=== PATIENT | female | born 1940 | race Caucasian/White ===

== ENCOUNTER 2016-12-11 08:59 | Outpatient (CLI) | payer MEDICARE, OTHER | END 2016-12-11 09:00 | disposition home or self-care (01) | DX: Z12.31 Encounter for screening mammogram for malignant neoplasm of breast (principal) ==

== ENCOUNTER 2016-12-11 09:00 | Outpatient (CLI) | payer MEDICARE, OTHER | END 2016-12-11 09:01 | disposition home or self-care (01) | DX: Z13.820 Encounter for screening for osteoporosis (principal); Z78.0 Asymptomatic menopausal state ==

== ENCOUNTER 2017-04-23 16:09 | Outpatient (CLI) | payer MEDICARE, OTHER ==
[2017-04-23 13:57] LABS: HEMOGLOBIN A1C 0.8 g/dL
== END 2017-04-23 16:10 | disposition home or self-care (01) ==
LOC: LAB.N 16:09
PROVIDERS: ATTEND Physician Assistant Medical
DX: E11.9 Type 2 diabetes mellitus without complications (principal)
CPT/HCPCS: 36415; 82947; 83036

== ENCOUNTER 2017-05-07 09:56 | Outpatient (CLI) | payer MEDICARE, OTHER ==
--- NOTE | 2017-05-07 13:41 | CT Report ---
CT NECK WITHOUT CONTRAST: 05/07/2017 CLINICAL INDICATION: Left-sided enlargement, edema. TECHNIQUE: Axial CT images of the neck were obtained without intravenous contrast, due to patient's IODINE ALLERGY. A marker was placed at the site of swelling identified by the patient. No previous CT is available for comparison. FINDINGS: The visualized orbits and paranasal sinuses are unremarkable. The tracheal air column is widely patent throughout. There is fatty replacement of both parotid glands. The marker does correl ate with the left parotid gland. No intraparotid mass is identified. The submandibular glands appea r unremarkable. No cervical lymphadenopathy is appreciated. The thyroid is heterogeneous. Limited evaluation of the lung apices is unremarkable. Osseous structures demonstrate degenerative changes. IMPRESSION: NO EVIDENCE OF INTRAPAROTID MASS OR OTHER EXPLANATION FOR SWELLING. FATTY REPLACEMENT O F BOTH PAROTID GLANDS, SYMMETRIC. NO CERVICAL ADENOPATHY. In accordance with CT protocol optimization, one or more of the following dose reduction techniques w ere utilized for this exam: automated exposure control, adjustment of mA and/or KV based on patient size, or use of iterative reconstructive technique. JOB #: [id number] EXT JOB #:[id number]
== END 2017-05-07 09:57 | disposition home or self-care (01) ==
LOC: DI 09:56
PROVIDERS: ATTEND Physician Assistant Medical
DX: R22.1 Localized swelling, mass and lump, neck (principal)
CPT/HCPCS: 70490

== ENCOUNTER 2017-08-23 14:30 | Outpatient (CLI) | payer MEDICARE, OTHER ==
[2017-08-23 14:08] LABS: HEMOGLOBIN A1C 0.87 g/dL
== END 2017-08-23 14:31 | disposition home or self-care (01) ==
LOC: LAB.N 14:30
PROVIDERS: ATTEND Physician Assistant Medical
DX: E11.9 Type 2 diabetes mellitus without complications (principal); Z79.899 Other long term (current) drug therapy
CPT/HCPCS: 36415; 82947; 83036

== ENCOUNTER 2017-11-27 10:09 | Outpatient (CLI) | payer MEDICARE, OTHER | END 2017-11-27 10:10 | disposition home or self-care (01) | LOC: SC 10:09 | PROVIDERS: ATTEND Nurse Practitioner Family | DX: G47.33 Obstructive sleep apnea (adult) (pediatric) (principal) | CPT/HCPCS: 99214; G0463; 99212 ==

== ENCOUNTER 2017-12-16 09:37 | Outpatient (CLI) | payer MEDICARE, OTHER ==
[2017-12-16 12:58] LABS: BASOPHILS % (AUTO) 0.6 %; EOSINOPHILS # (AUTO) 0.2 10^3/uL (0.0-0.7); EOSINOPHILS % (AUTO) 2.5 %; HGB - HEMOGLOBIN 13.9 g/dL (12.0-16.0); LYMPHOCYTES # (AUTO) 2.1 10^3/uL (1.5-3.5); LYMPHOCYTES % (AUTO) 30.3 %; MEAN CORPUSCULAR HEMOGLOBIN 30.3 pg (27.0-31.0); MEAN CORPUSCULAR HGB CONC 33.2 g/dL (32.0-36.0); MEAN CORPUSCULAR VOLUME 91.3 fL (81.0-99.0); MEAN PLATELET VOLUME 8.9 fL (7.9-10.8); MONOCYTES # (AUTO) 0.6 10^3/uL (0.0-1.0); MONOCYTES % (AUTO) 8.3 %; NEUTROPHILS # (AUTO) 4.1 10^3/uL (1.5-6.6); NEUTROPHILS % (AUTO) 58.3 %; PLT - PLATELET COUNT 230 10^3/uL (130-450); RED BLOOD COUNT 4.58 10^6/uL (4.20-5.40); RED CELL DISTRIBUTION WIDTH 16.1 % (12.0-15.0); WHITE BLOOD COUNT 7.1 x10^3/uL (4.8-10.8)
[2017-12-16 13:15] LABS: ALBUMIN 3.7 g/dL (3.2-5.5); ALBUMIN/GLOBULIN RATIO 1.2 (1.0-2.2); ALKALINE PHOSPHATASE 45 IU/L (42-121); ALT ALANINE AMINOTRANSFERASE 25 IU/L (10-60); AST ASPARTATE AMINOTRANSFERASE 26 IU/L (10-42); BILIRUBIN,TOTAL 0.5 mg/dL (0.2-1.0); BUN - BLOOD UREA NITROGEN 21 mg/dL (6-20); CALCIUM 9.1 mg/dL (8.5-10.3); CARBON DIOXIDE - CO2 26 mmol/L (21-32); CHLORIDE 103 mmol/L (101-111); CHOL/HDL RATIO 3.5 (<4.4); CHOLESTEROL 162 mg/dL; CREATININE 0.8 mg/dL (0.4-1.0); GFR - MDRD 69 (>89); GLUCOSE 185 mg/dL (70-100); HDL CHOLESTEROL 46 mg/dL; LDL CHOLESTEROL,CALCULATED 83 mg/dL; LDL/HDL RATIO 1.8 (<4.4); SODIUM 136 mmol/L (135-145); TOTAL PROTEIN 6.7 g/dL (6.7-8.2); VLDL CHOLESTEROL 33 mg/dL
[2017-12-16 13:29] LABS: HB2 TOTAL 14.8 g/dL; HEMOGLOBIN A1C 0.85 g/dL; HEMOGLOBIN A1C % 7.4 % (4.6-6.2)
== END 2017-12-16 09:38 | disposition home or self-care (01) ==
LOC: LAB.N 09:37
PROVIDERS: ATTEND Nurse Practitioner Primary Care
DX: E11.9 Type 2 diabetes mellitus without complications (principal); Z79.899 Other long term (current) drug therapy; M06.9 Rheumatoid arthritis, unspecified; I10 Essential (primary) hypertension; J32.9 Chronic sinusitis, unspecified; E78.2 Mixed hyperlipidemia
CPT/HCPCS: 36415; 80053; 80061; 83036; 83721; 85025

== ENCOUNTER 2018-01-03 08:00 | Outpatient (CLI) | payer MEDICARE, OTHER ==
[2018-01-07 17:01] LABS: CREATININE, URINE 1.25 g/24 h (0.63-2.50)
== END 2018-01-03 23:59 | disposition home or self-care (01) ==
LOC: LAB.R 08:00
PROVIDERS: ATTEND Physician Assistant Medical
DX: R53.83 Other fatigue (principal); F32.9 Major depressive disorder, single episode, unspecified; E66.9 Obesity, unspecified; I10 Essential (primary) hypertension; E11.9 Type 2 diabetes mellitus without complications
CPT/HCPCS: 82530; 82570

== ENCOUNTER 2018-01-04 08:46 | Outpatient (CLI) | payer MEDICARE, OTHER | END 2018-01-04 08:47 | disposition home or self-care (01) | LOC: LAB 08:46 | PROVIDERS: ATTEND Physician Assistant Medical | DX: R53.83 Other fatigue (principal); F32.9 Major depressive disorder, single episode, unspecified; E66.9 Obesity, unspecified; I10 Essential (primary) hypertension; E11.9 Type 2 diabetes mellitus without complications | CPT/HCPCS: 36415; 82533 ==

== ENCOUNTER 2018-05-09 08:53 | Outpatient (CLI) | payer MEDICARE, OTHER ==
[2018-05-09 13:40] LABS: HB2 TOTAL 15.9 g/dL; HEMOGLOBIN A1C 0.87 g/dL; HEMOGLOBIN A1C % 7.2 % (4.6-6.2)
== END 2018-05-09 08:54 | disposition home or self-care (01) ==
LOC: LAB.N 08:53
PROVIDERS: ATTEND Physician Assistant Medical
DX: E11.9 Type 2 diabetes mellitus without complications (principal); Z79.899 Other long term (current) drug therapy
CPT/HCPCS: 36415; 82947; 83036

== ENCOUNTER 2018-07-31 08:00 | Outpatient (CLI) | payer MEDICARE, OTHER ==
[2018-07-31 12:21] LABS: HB2 TOTAL 15.1 g/dL; HEMOGLOBIN A1C 0.88 g/dL; HEMOGLOBIN A1C % 7.5 % (4.6-6.2)
== END 2018-07-31 08:01 | disposition home or self-care (01) ==
LOC: LAB.N 08:00
PROVIDERS: ATTEND Physician Assistant Medical
DX: Z79.899 Other long term (current) drug therapy (principal); E11.9 Type 2 diabetes mellitus without complications
CPT/HCPCS: 36415; 82947; 83036

== ENCOUNTER 2018-08-11 09:40 | Outpatient (CLI) | payer MEDICARE, OTHER | END 2018-08-11 09:41 | disposition home or self-care (01) | LOC: LAB.R 09:40 | PROVIDERS: ATTEND Physician Assistant Medical | DX: N39.0 Urinary tract infection, site not specified (principal) | CPT/HCPCS: 87086 ==

== ENCOUNTER 2018-10-07 10:03 | Outpatient (CLI) | payer MEDICARE, OTHER ==
--- NOTE | 2018-10-07 11:15 | XRAY Report ---
Reason: KNEE PAIN,RIGHT Procedure Date: 10/07/2018 Accession Number: [id number] / [id number] Procedure: XR - Knee 4 View RT CPT Code: FULL RESULT: EXAM: RIGHT KNEE RADIOGRAPHY EXAM DATE: 10/07/2018 10:09 AM. CLINICAL HISTORY: Knee pain, right. COMPARISON: XR KNEE 3 VIEW 03/15/2009 11:21 AM. TECHNIQUE: 3 views. FINDINGS: Bones: Normal. No fractures or bone lesions. Joints: Normal. Small suprapatellar effusion. No subluxations. Soft Tissues: Normal. No soft tissue swelling. IMPRESSION: Small suprapatellar effusion, otherwise normal knee radiography. RAD[facility]
== END 2018-10-07 10:04 | disposition home or self-care (01) ==
LOC: DI 10:03
PROVIDERS: ATTEND Physician Assistant Medical
DX: M25.461 Effusion, right knee (principal); M25.561 Pain in right knee

== ENCOUNTER 2018-11-03 16:18 | Outpatient (CLI) | payer MEDICARE, OTHER ==
[2018-11-05 10:49] LABS: CLARITY,URINE CLEAR (CLEAR); LEUKOCYTE ESTERASE, URINE NEGATIVE (NEGATIVE); NITRITE,URINE NEGATIVE (NEGATIVE)
[2018-11-05 10:50] LABS: BILIRUBIN,URINE NEGATIVE (NEGATIVE); GLUCOSE, URINE (UA) NEGATIVE (NEGATIVE); ICTOTEST,URINE NEGATIVE; KETONES,URINE (UA) NEGATIVE (NEGATIVE); OCCULT BLOOD,URINE NEGATIVE (NEGATIVE); PH,URINE 7.5 PH (5.0-7.5); PROTEIN,URINE NEGATIVE (NEGATIVE); UROBILINOGEN,URINE 0.2 (NORMAL) E.U./dL (NORMAL)
== END 2018-11-03 23:59 | disposition home or self-care (01) ==
LOC: LAB.R 16:18
PROVIDERS: ATTEND Nurse Practitioner Primary Care
DX: R82.90 Unspecified abnormal findings in urine (principal); R10.9 Unspecified abdominal pain
CPT/HCPCS: 81001; 81003; 87086

== ENCOUNTER 2018-11-24 08:00 | Outpatient (CLI) | payer MEDICARE, OTHER ==
[2018-11-24 13:43] LABS: BASOPHILS % (AUTO) 0.6 %; EOSINOPHILS # (AUTO) 0.2 10^3/uL (0.0-0.7); EOSINOPHILS % (AUTO) 3.1 %; LYMPHOCYTES # (AUTO) 2.1 10^3/uL (1.5-3.5); LYMPHOCYTES % (AUTO) 27.5 %; MEAN CORPUSCULAR HEMOGLOBIN 30.9 pg (27.0-31.0); MEAN CORPUSCULAR HGB CONC 33.1 g/dL (32.0-36.0); MEAN CORPUSCULAR VOLUME 93.4 fL (81.0-99.0); MEAN PLATELET VOLUME 8.7 fL (7.9-10.8); MONOCYTES # (AUTO) 0.5 10^3/uL (0.0-1.0); MONOCYTES % (AUTO) 6.8 %; NEUTROPHILS # (AUTO) 4.8 10^3/uL (1.5-6.6); PLT - PLATELET COUNT 316 10^3/uL (130-450); RED BLOOD COUNT 4.54 10^6/uL (4.20-5.40); RED CELL DISTRIBUTION WIDTH 15.1 % (12.0-15.0); WHITE BLOOD COUNT 7.8 x10^3/uL (4.8-10.8)
[2018-11-24 13:49] LABS: ALBUMIN 3.6 g/dL (3.2-5.5); ALKALINE PHOSPHATASE 59 IU/L (42-121); ALT ALANINE AMINOTRANSFERASE 22 IU/L (10-60); AST ASPARTATE AMINOTRANSFERASE 22 IU/L (10-42); BILIRUBIN,TOTAL 0.5 mg/dL (0.2-1.0); BUN - BLOOD UREA NITROGEN 18 mg/dL (6-20); CALCIUM 9.7 mg/dL (8.5-10.3); CARBON DIOXIDE - CO2 28 mmol/L (21-32); CHLORIDE 100 mmol/L (101-111); CHOLESTEROL 169 mg/dL; CREATININE 0.8 mg/dL (0.4-1.0); GFR - MDRD 69 (>89); GLUCOSE 109 mg/dL (70-100); HDL CHOLESTEROL 46 mg/dL; LDL CHOLESTEROL,CALCULATED 87 mg/dL; SODIUM 140 mmol/L (135-145); TOTAL PROTEIN 7.1 g/dL (6.7-8.2); VLDL CHOLESTEROL 36 mg/dL
[2018-11-24 13:50] LABS: CHOL/HDL RATIO 3.7 (<4.4); LDL/HDL RATIO 1.9 (<4.4)
[2018-11-24 13:56] LABS: HB2 TOTAL 15.1 g/dL; HEMOGLOBIN A1C 0.74 g/dL; HEMOGLOBIN A1C % 6.6 % (4.6-6.2)
== END 2018-11-24 23:59 | disposition home or self-care (01) ==
LOC: LAB.N 08:00
PROVIDERS: ATTEND Physician Assistant Medical
DX: Z79.899 Other long term (current) drug therapy (principal); E55.9 Vitamin D deficiency, unspecified; E66.3 Overweight; E78.2 Mixed hyperlipidemia; I10 Essential (primary) hypertension; F32.9 Major depressive disorder, single episode, unspecified; E11.9 Type 2 diabetes mellitus without complications
CPT/HCPCS: 36415; 80053; 80061; 82306; 83036; 83721; 84443; 85025

== ENCOUNTER 2018-12-17 08:40 | Outpatient (CLI) | payer MEDICARE, OTHER | END 2018-12-17 08:41 | disposition home or self-care (01) | LOC: SC 08:40 | PROVIDERS: ATTEND Nurse Practitioner Family | DX: G47.33 Obstructive sleep apnea (adult) (pediatric) (principal) | CPT/HCPCS: 99214; G0463; 99212 ==

== ENCOUNTER 2019-03-09 08:00 | Outpatient (CLI) | payer MEDICARE, OTHER ==
[2019-03-09 13:05] LABS: CALCIUM 9.6 mg/dL (8.5-10.3); CREATININE 0.7 mg/dL (0.4-1.0)
[2019-03-09 13:20] LABS: HB2 TOTAL 15.5 g/dL; HEMOGLOBIN A1C 0.76 g/dL; HEMOGLOBIN A1C % 6.6 % (4.6-6.2)
== END 2019-03-09 23:59 | disposition home or self-care (01) ==
LOC: LAB.N 08:00
PROVIDERS: ATTEND Family Medicine
DX: E11.9 Type 2 diabetes mellitus without complications (principal)
CPT/HCPCS: 36415; 80048; 83036

== ENCOUNTER 2019-05-14 16:48 | Outpatient (CLI) | payer MEDICARE, OTHER ==
--- NOTE | 2019-05-15 09:08 | XRAY Report ---
Reason: KNEE JOINT PAIN,LEFT,KNEE PAIN,RIGHT Procedure Date: 05/14/2019 Accession Number: [id number] / [id number] Procedure: XR - Knee 3 View BILAT CPT Code: FULL RESULT: EXAMS: 1. Right Knee Radiography 2. Left Knee Radiography EXAM DATE:05/14/2019 05:18 PM. CLINICAL HISTORY:Chronic bilateral knee pain x 2 years. No left knee comparison. COMPARISON: KNEE 4 VIEW RT 10/07/2018 10:09 AM. TECHNIQUE: 4 views each. FINDINGS: Right Knee: Bones: Normal. No fractures or bone lesions. Joints: Normal. No effusion. No subluxations. Soft Tissues: Very small nodular calcification projecting over Hoffa's fat pad is without significant change. Loose body not excluded. Vascular calcifications. Left Knee: Bones: Normal. No fractures or bone lesions. Joints: Normal. No effusion. No subluxations. Soft Tissues: Possible posterior calcified loose body. IMPRESSION: 1. No definite osseous abnormality of the knees. 2. Possible calcified loose bodies. RADIA
== END 2019-05-14 16:49 | disposition home or self-care (01) ==
LOC: DI 16:48
PROVIDERS: ATTEND Nurse Practitioner
DX: M25.562 Pain in left knee (principal); M25.561 Pain in right knee

== ENCOUNTER 2019-05-25 08:15 | Outpatient (CLI) | payer MEDICARE, OTHER ==
[2019-05-25 12:02] LABS: CALCIUM 9.7 mg/dL (8.5-10.3); CREATININE 0.8 mg/dL (0.4-1.0)
[2019-05-25 12:35] LABS: HB2 TOTAL 15.3 g/dL; HEMOGLOBIN A1C 0.94 g/dL; HEMOGLOBIN A1C % 7.8 % (4.6-6.2)
== END 2019-05-25 23:59 | disposition home or self-care (01) ==
LOC: LAB.N 08:15
PROVIDERS: ATTEND Nurse Practitioner
DX: E11.9 Type 2 diabetes mellitus without complications (principal)
CPT/HCPCS: 36415; 80048; 83036

== ENCOUNTER 2019-10-05 07:46 | Outpatient (CLI) | payer MEDICARE, OTHER ==
[2019-10-05 12:32] LABS: CALCIUM 9.6 mg/dL (8.5-10.3); CREATININE 0.7 mg/dL (0.4-1.0)
[2019-10-05 13:22] LABS: HB2 TOTAL 14.8 g/dL; HEMOGLOBIN A1C 0.86 g/dL; HEMOGLOBIN A1C % 7.5 % (4.6-6.2)
== END 2019-10-05 23:59 | disposition home or self-care (01) ==
LOC: LAB.N 07:46
PROVIDERS: ATTEND Nurse Practitioner
DX: E11.9 Type 2 diabetes mellitus without complications (principal)
CPT/HCPCS: 36415; 80048; 83036

== ENCOUNTER 2019-12-02 08:00 | Outpatient (CLI) | payer MEDICARE, OTHER ==
[2019-12-02 11:57] LABS: BASOPHILS # (AUTO) 0.1 10^3/uL (0.0-0.1); BASOPHILS % (AUTO) 0.5 %; EOSINOPHILS # (AUTO) 0.3 10^3/uL (0.0-0.7); EOSINOPHILS % (AUTO) 2.8 %; HGB - HEMOGLOBIN 13.6 g/dL (12.0-16.0); LYMPHOCYTES # (AUTO) 2.7 10^3/uL (1.5-3.5); LYMPHOCYTES % (AUTO) 28.7 %; MEAN CORPUSCULAR HEMOGLOBIN 29.8 pg (27.0-31.0); MEAN CORPUSCULAR HGB CONC 31.3 g/dL (32.0-36.0); MEAN CORPUSCULAR VOLUME 95.2 fL (81.0-99.0); MEAN PLATELET VOLUME 10.4 fL (7.9-10.8); MONOCYTES # (AUTO) 0.6 10^3/uL (0.0-1.0); MONOCYTES % (AUTO) 6.1 %; NEUTROPHILS # (AUTO) 5.7 10^3/uL (1.5-6.6); NEUTROPHILS % (AUTO) 61.6 %; PLT - PLATELET COUNT 376 10^3/uL (130-450); RED BLOOD COUNT 4.57 10^6/uL (4.20-5.40); RED CELL DISTRIBUTION WIDTH 15.8 % (12.0-15.0); WHITE BLOOD COUNT 9.2 x10^3/uL (4.8-10.8)
[2019-12-02 12:30] LABS: ALBUMIN 3.6 g/dL (3.2-5.5); ALBUMIN/GLOBULIN RATIO 1.1 (1.0-2.2); ALKALINE PHOSPHATASE 53 IU/L (42-121); ALT ALANINE AMINOTRANSFERASE 30 IU/L (10-60); AST ASPARTATE AMINOTRANSFERASE 29 IU/L (10-42); BILIRUBIN,TOTAL 0.6 mg/dL (0.2-1.0); BUN - BLOOD UREA NITROGEN 24 mg/dL (6-20); CALCIUM 9.8 mg/dL (8.5-10.3); CARBON DIOXIDE - CO2 29 mmol/L (21-32); CHLORIDE 101 mmol/L (101-111); CHOL/HDL RATIO 3.2 (<4.4); CHOLESTEROL 164 mg/dL; CREATININE 0.8 mg/dL (0.4-1.0); GFR - MDRD 69 (>89); GLUCOSE 144 mg/dL (70-100); HDL CHOLESTEROL 51 mg/dL; LDL CHOLESTEROL,CALCULATED 80 mg/dL; LDL/HDL RATIO 1.6 (<4.4); SODIUM 140 mmol/L (135-145); TOTAL PROTEIN 6.8 g/dL (6.7-8.2); VLDL CHOLESTEROL 33 mg/dL
[2019-12-04 10:20] LABS: HB2 TOTAL 13.5 g/dL; HEMOGLOBIN A1C 0.81 g/dL; HEMOGLOBIN A1C % 7.6 % (4.6-6.2)
== END 2019-12-02 23:59 | disposition home or self-care (01) ==
LOC: LAB.N 08:00
PROVIDERS: ATTEND Nurse Practitioner
DX: Z79.899 Other long term (current) drug therapy (principal); E78.2 Mixed hyperlipidemia; I10 Essential (primary) hypertension; E11.9 Type 2 diabetes mellitus without complications
CPT/HCPCS: 36415; 80053; 80061; 83036; 83721; 84443; 85025

== ENCOUNTER 2020-05-03 14:00 | Observation (INO) | payer MEDICARE, OTHER ==
--- NOTE | 2020-05-03 14:58 | XRAY Report ---
Reason: chest pain Procedure Date: 05/03/2020 Accession Number: [id number] / [id number] Procedure: XR - Chest 1 View X-Ray CPT Code: 34470 Final Report FULL RESULT: PROCEDURE: Chest 1 View X-Ray INDICATIONS: chest pain TECHNIQUE: One view of the chest was acquired. COMPARISON: None FINDINGS: Surgical changes and devices: None. Lungs and pleura: No pleural effusions or pneumothorax. Lungs are clear. Mediastinum: Mediastinal contours appear normal. Heart size is normal. Bones and chest wall: No suspicious bony lesions. Overlying soft tissues appear unremarkable. IMPRESSION: No acute cardiopulmonary disease process. Reviewed by: Gladis Hernández MD, PhD on 05/03/2020 2:57 PM PDT Approved by: Gladis Hernández MD, PhD on 05/03/2020 2:57 PM PDT Station ID: [id number]
--- NOTE | 2020-05-03 15:03 | ED Physician Documentation ---
History of Present Illness - Stated complaint Stated Complaint: BREWSTER/SORE THROAT - Chief complaint Chief Complaint: General - History obtained from History obtained from: Patient - History of Present Illness Timing: Prior to arrival, How many hours ago (14) - Additonal information Additional information: 79-year-old female presents to the emergency department at the behest of her for evaluation of chest pain and pressure. Patient reports that at about 2 AM she woke up to use the bathroom and when she was returning to bed she noted a very mild left-sided substernal chest pressure. She took some Tylenol and then played solitaire and was able to return to sleep. However today she has noticed an occasional episode of chest pressure that has self resolved. She denies any dyspnea any calf or leg pain no nausea no jaw or arm tingling. She does have a history of hypertension and diabetes. She last had cardiac a stress test and echo in 2014. She denies fevers dysuria abdominal pain. No calf pain or unilateral leg swelling or tenderness. No leg edema. At present patient reports that she feels well and would like to be discharged from the emergency department. Review of Systems Constitutional: denies: Fever, Chills, Myalgias Ears: denies: Ear pain, Drainage/discharge, Tinnitus/ringing Throat: denies: Dental pain / toothache, Oral lesions / sores Cardiac: reports: Chest pain / pressure. denies: Palpitations, Pedal edema, Calf pain Respiratory: denies: Dyspnea, Cough, Hemoptysis, Wheezing GI: denies: Abdominal Pain, Abdominal Swelling, Nausea, Vomiting : denies: Dysuria, Frequency Skin: denies: Rash, Lesions Musculoskeletal: denies: Neck pain, Back pain Neurologic: denies: Generalized weakness, Focal weakness, Numbness, Difficulty speaking, Near syncope, Syncope, Altered mental status, Unresponsive PD PAST MEDICAL HISTORY - Past Medical History Past Medical History: Yes Cardiovascular: Hypertension, High cholesterol Respiratory: Asthma, Sleep apnea, CPAP use Neuro: Peripheral neuropathy Endocrine/Autoimmune: Type 2 diabetes GI: Colon polyps ENVIRONMENTAL SAMPLER: None : Frequency HEENT: None Psych: Depression Musculoskeletal: Rheumatoid arthritis Derm: None - Past Surgical History Past Surgical History: Yes General: Colonoscopy /ENVIRONMENTAL SAMPLER: Tubal ligation, Hysterectomy HEENT: Tonsil/Adenoidectomy - Present Medications Home Medications: Ambulatory Orders Medication Instructions Recorded Confirmed Cetirizine HCl [Zyrtec] 10 mg PO DAILY 12/08/13 05/03/20 Fluticasone [Flonase] 2 sprays DAMION DAILY 12/08/13 05/03/20 Folic Acid 1 mg PO DAILY 12/08/13 05/03/20 Hydrochlorothiazide 12.5 mg PO DAILY 12/08/13 05/03/20 Insulin Aspart [Novolog] 5 unit .ROUTE QID 12/08/13 05/03/20 Insulin Glargine [Lantus] 44 unit SUBQ QPM 12/08/13 05/03/20 lisinopriL [Zestril] 20 mg PO DAILY 12/08/13 05/03/20 metFORMIN [Glucophage] 125 mg PO BID 12/08/13 05/03/20 Aspirin [Aspir 81] 81 mg PO DAILY 01/19/14 05/03/20 Azelastine HCl [Astelin] 137 mcg NS DAILY 01/19/14 05/03/20 Docusate Calcium [Surfak] 240 mg PO TID PRN 01/19/14 05/03/20 Tolterodine Tartrate [Detrol] 1 mg PO ONCEDAILY 01/19/14 05/03/20 Ascorbic Acid [Vitamin C] 1 tab PO DAILY 12/14/15 05/03/20 Biotin 1 tab PO DAILY 12/14/15 05/03/20 Calcium Carbonate/Vitamin D3 1 tab PO DAILY 12/14/15 05/03/20 [Calcium 500 + Vit D Caplet] L.acidoph/L.rhamn/B.bif/B.long 1 tab PO DAILY 12/14/15 05/03/20 [Probiotic Acidophilus Biobeads] Parsley/Garlic [Garlic & Parsley 1 tab PO DAILY 12/14/15 05/03/20 Tablet] Glipizide [Glipizide Xl] 1.25 mg PO BID 05/03/20 05/03/20 Montelukast [Singulair] 10 mg PO QPM 05/03/20 05/03/20 Trazodone HCl 50 mg PO DAILY PM 05/03/20 05/03/20 buPROPion [Wellbutrin Sr] 150 mg PO DAILY PM 05/03/20 05/03/20 - Allergies Allergies/Adverse Reactions: Allergies Allergy/AdvReac Type Severity Reaction Status Date / Time iodine Allergy Intermediate Rash Verified 01/19/14 08:44 nifedipine [From Procardia] Allergy Mild supraventricular Verified 01/19/14 08:43 tachycardia codeine AdvReac Intermediate Anxiety Verified 12/08/13 09:03 - Social History Does the pt smoke?: No Smoking Status: Former smoker Does the pt drink ETOH?: No Does the pt have substance abuse?: No - Immunizations Immunizations are current?: No Immunizations: TDAP >10years/unknown - POLST Patient has POLST: No PD ED PE NORMAL - General General: Alert and oriented X 3, No acute distress, Well developed/nourished - HEENT HEENT: Atraumatic, PERRL, EOMI - Neck Neck: Supple, no meningeal sign, No adenopathy - Cardiac Cardiac: RRR, No murmur, No gallop, No rub, Strong equal pulses (radial) - Respiratory Respiratory: No respiratory distress, Clear bilaterally - Abdomen Abdomen: Normal bowel sounds, Non tender - Back Back: No: No CVA TTP, No spinal TTP - Derm Derm: Normal color, Warm and dry - Extremities Extremities: No deformity, No tenderness to palpate, No calf tenderness / cord - Neuro Neuro: Alert and oriented X 3, 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, No motor deficit, No sensory deficit, Normal speech Eye Opening: Spontaneous Motor: Obeys Commands Verbal: Oriented GCS Score: 15 - Psych Psych: Normal mood Results - Vitals Vitals: Vital Signs - 24 hr 05/03/20 05/03/20 14:06 16:00 Temperature 37.5 C Heart Rate 115 H 104 H Respiratory 16 18 Rate Blood Pressure 168/71 H 166/79 H O2 Saturation 96 97 Oxygen O2 Source Room air - EKG (time done) 1415 Rate: Rate (enter#) (107), Tachy Rhythm: Sinus tachycardia White Owl: Normal Intervals: Normal LA QRS: Normal Ischemia: Normal ST segments Compare to prior EKG: Changed from prior EKG (Sinus tach with multiple unifocal PVC;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; Changes QRS V4V5) Computer interpretation: Agree with computer - Labs Labs: Laboratory Tests 05/03/20 05/03/20 05/03/20 15:51 15:51 15:51 WBC 11.7 H RBC 5.03 Hgb 14.7 Hct 46.8 MCV 93.0 MCH 29.2 MCHC 31.4 L RDW 16.4 H Plt Count 307 MPV 10.1 Neut # (Auto) 8.1 H Lymph # (Auto) 2.6 Kingfisher # (Auto) 0.8 Eos # (Auto) 0.1 Baso # (Auto) 0.1 Absolute Nucleated RBC 0.00 Nucleated RBC % 0.0 Sodium 138 Potassium 3.6 Chloride 97 L Carbon Dioxide 30 Anion Gap 11.0 BUN 15 Creatinine 0.7 Estimated GFR (MDRD) 81 L Glucose 178 H Calcium 9.9 Total Bilirubin 0.3 AST 27 ALT 30 Alkaline Phosphatase 52 Troponin I High Sens 10.8 Total Protein 7.6 Albumin 3.7 Globulin 3.9 Albumin/Globulin Ratio 0.9 L Lipase 30 - Rads (name of study) cxr Radiology: Final report received (no acute cardiopulmonary process) PD MEDICAL DECISION MAKING - ED course Complexity details: reviewed results, re-evaluated patient, considered differential, d/w patient ED course: 79-year-old female presents to the emergency department with chief complaint of chest pressure that began last night about 2 AM. Episodes are brief lasting only a few minutes. No associated arm or jaw pain or tingling. - Differential diagnosis includes angina versus ACS versus pneumonia versus heart failure - EKG today is reviewed and is significantly different from the EKG in 2015. No ST elevation but there is concern of possible old inferior infarct. Patient high-sensitivity Trop today is 10.8 but given the history of diabetes and hypertension her symptoms are certainly consistent with anginal-like event. - I have spoken with Dr. Dey who is agreed to bring the patient in on an observation status for stress test and echocardiogram. Departure - Departure Disposition: ED Place in Observation Clinical Impression: Chest pressure Condition: Stable
[2020-05-03 16:01] LABS: BASOPHILS # (AUTO) 0.1 10^3/uL (0.0-0.1); BASOPHILS % (AUTO) 0.5 %; EOSINOPHILS # (AUTO) 0.1 10^3/uL (0.0-0.7); EOSINOPHILS % (AUTO) 1.1 %; HGB - HEMOGLOBIN 14.7 g/dL (12.0-16.0); LYMPHOCYTES # (AUTO) 2.6 10^3/uL (1.5-3.5); MEAN CORPUSCULAR HEMOGLOBIN 29.2 pg (27.0-31.0); MEAN CORPUSCULAR HGB CONC 31.4 g/dL (32.0-36.0); MEAN PLATELET VOLUME 10.1 fL (7.9-10.8); MONOCYTES # (AUTO) 0.8 10^3/uL (0.0-1.0); MONOCYTES % (AUTO) 6.5 %; NEUTROPHILS # (AUTO) 8.1 10^3/uL (1.5-6.6); NEUTROPHILS % (AUTO) 69.4 %; PLT - PLATELET COUNT 307 10^3/uL (130-450); RED BLOOD COUNT 5.03 10^6/uL (4.20-5.40); RED CELL DISTRIBUTION WIDTH 16.4 % (12.0-15.0); WHITE BLOOD COUNT 11.7 x10^3/uL (4.8-10.8)
[2020-05-03 16:13] LABS: ALBUMIN 3.7 g/dL (3.2-5.5); ALBUMIN/GLOBULIN RATIO 0.9 (1.0-2.2); BILIRUBIN,TOTAL 0.3 mg/dL (0.2-1.0); CALCIUM 9.9 mg/dL (8.5-10.3); CREATININE 0.7 mg/dL (0.4-1.0); TOTAL PROTEIN 7.6 g/dL (6.7-8.2)
[2020-05-03] MEDS ORDERED: ASPIRIN 325 MG TABLET PO STA (16:26)
[2020-05-03] MEDS ORDERED: ACETAMINOPHEN 325 MG TABLET PO PRN (16:57)
[2020-05-03] MEDS ORDERED: ONDANSETRON 4 MG/2 ML VIAL IVP PRN (16:57)
[2020-05-03] MEDS ORDERED: ZOLPIDEM 5 MG TABLET PO PRN (16:57)
[2020-05-03] MEDS ORDERED: MORPHINE 2 MG/ML CARPUJECT IVP PRN (16:57)
[2020-05-03] MEDS ORDERED: SODIUM CHLORIDE FLUSH 0.9% 10 ML SYRINGE IVP PRN (16:57)
[2020-05-03] MEDS ORDERED: NITROGLYCERIN SL 0.4 MG TABLET SL PRN (17:19)
--- NOTE | 2020-05-03 17:22 | HISTORY & PHYSICAL EXAMINATION ---
Chief Complaint - Chief Complaint Chief Complaint: chest pain History of Present Illness - Admitted From Admitted From:: ER - History Obtained From History obtained from: pt - History of Present Illness HPI Comment/Other: This is a 79-year-old female with a PMH significant for Hypertension, hyperlipidemia, asthma, sleep apnea, CPAP use, peripheral neuropathy, type II diabetic depression, rheumatioid arthritis, who presents to the emergency department complain of chest pain. Patient reports that at about 2 AM she woke up to use the bathroom she noted a very mild left-sided substernal chest pressure which radiated to her back. But She report She took Tylenol, she jennifer nue to have sleep when she was returning to bed. today she has noticed an occasional episode of chest pressure at the midsternal but it was self resolved. She denies shortness of breath, nausea or vomiting, jaw pain or arm pain or tingling, diaphoresis. She report her last cardiac stress test and echo was done in 2014. In routine lab test review troponin now is 10.8, EKG review sinus tachycardia at 107 HR. Pt Is admitted in the observation unit for chest pain management and evaluation. We discussed the care goal, patient want full code. History - Past Medical History Cardiovascular: reports: Hypertension, High cholesterol Respiratory: reports: Asthma, Sleep apnea, CPAP use Neuro: reports: Peripheral neuropathy Endocrine/Autoimmune: reports: Type 2 diabetes GI: reports: Colon polyps SPECIAL EDUCATION PARAPROFESSIONAL: reports: None : reports: Frequency HEENT: reports: None Psych: reports: Depression Musculoskeletal: reports: Rheumatoid arthritis Derm: reports: None MRSA Hx?: No - Past Surgical History General: reports: Colonoscopy /SPECIAL EDUCATION PARAPROFESSIONAL: reports: Tubal ligation, Hysterectomy HEENT: reports: Tonsil/Adenoidectomy - Family & Social History Family History: Mother: , Father: Social History Notes: pt repot she quitted cigarett smoking 36 yrs ago. she denies alcohol and drug issue. - POLST Patient has POLST: No Meds/Allgy - Home Medications Home Medications: Ambulatory Orders Medication Instructions Recorded Confirmed Fluticasone [Flonase] 2 sprays DAMION DAILY 12/08/13 05/03/20 Folic Acid 1 mg PO DAILY 12/08/13 05/03/20 Hydrochlorothiazide 12.5 mg PO DAILY 12/08/13 05/03/20 Insulin Aspart [Novolog] 12 - 20 unit SUBQ TID 12/08/13 01/04/16 Insulin Glargine [Lantus] 40 - 60 unit SUBQ QPM 12/08/13 01/04/16 Aspirin [Aspir 81] 81 mg PO DAILY 01/19/14 05/03/20 Azelastine HCl [Astelin] 2 sprays NS DAILY 01/19/14 01/04/16 Docusate Calcium [Surfak] 240 mg PO TID PRN 01/19/14 05/03/20 Lisinopril [Zestril] 20 mg PO DAILY 05/03/20 05/03/20 Metformin HCl 250 mg PO BID 05/03/20 05/03/20 Montelukast [Singulair] 10 mg PO QPM 05/03/20 05/03/20 Tolterodine Tartrate [Detrol LA] 4 mg PO DAILY 05/03/20 05/03/20 Trazodone HCl 50 mg PO DAILY PM 05/03/20 05/03/20 buPROPion [Wellbutrin Sr] 150 mg PO DAILY PM 05/03/20 05/03/20 glipiZIDE [Glipizide] 2.5 mg PO BID 05/03/20 05/03/20 - Allergies Allergies/Adverse Reactions: Allergies Allergy/AdvReac Type Severity Reaction Status Date / Time iodine Allergy Intermediate Rash Verified 01/19/14 08:44 nifedipine [From Procardia] Allergy Mild supraventricular Verified 01/19/14 08:43 tachycardia codeine AdvReac Intermediate Anxiety Verified 12/08/13 09:03 Review of Systems - Constitutional Constitutional: denies: Fatigue, Fever, Chills, Malaise, Weakness, Poor appetite, Diaphoresis, Night sweats - Eyes Eyes: denies: Pain, Blurred vision, Spots in vision, Field loss, Vision loss, Dipolpia - Ears, Nose & Throat Ears, Nose & Throat: denies: Ear pain, Hearing loss, Hearing aids, Vertigo, Nasal pain, Nasal discharge, Nosebleeds, Nasal obstruction, Nasal congestion, Mouth lesions, Bleeding gums - Cardiovascular Cariovascular: reports: Chest pain. denies: Irregular heart rate, Palpitations, Edema, Lightheadedness, Syncope, Exertional dyspnea, Decr. exercise tolerance - Respiratory Respiratory: denies: Cough, Sputum production, Wheezing, Snoring, Hemoptysis, Orthopnea, SOB at rest, SOB with exertion, Apnea - Gastrointestinal Gastrointestinal: denies: Abdominal pain, Abdominal distention, Constipation, Diarrhea, Rectal bleeding, Black stools, Bloody stools, Nausea, Vomiting, Coffee grounds emesis - Genitourinary Genitourinary: denies: Dysuria, Frequency, Urgency, Hematuria, Incontinence, Flank pain, Nocturia, Urethral discharge - Musculoskeletal Musculoskeletal: denies: Muscle pain, Back pain, Muscle aches, Stiffness, Limited range of motion, Muscle weakness, Gout, Joint pain - Integumentary Integumentary: denies: Rash, Pruritis, Lumps, Acne, Pigment changes, Nail changes - Neurological Neurological: denies: General weakness, Focal weakness, Headache, Dizziness, Numbness, Memory problems, Pre-existing deficit, Seizures, Incoordination, Slurred speech - Psychiatric Psychiatric: denies: Depression, Anxiety, Suicidal, Delusions, Hallucinations, Homicidal - Endocrine Endocrine: denies: Polyuria, Polydypsia, Polyphagia - Hematologic/Lymphatic Hematologic/Lymphatic: denies: Anemia, Bruising, Petechiae, Blood clots, Lymphadenopathy, Bleeding tendencies Exam - Vital Signs Vital Signs: Vital Signs x48h Temp Pulse Resp BP Pulse Ox 05/03/20 16:00 104 H 18 166/79 H 97 05/03/20 14:06 37.5 C 115 H 16 168/71 H 96 - Physical Exam General Appearance: positive: No acute distress, Alert. negative: Lethargic Eyes Bilateral: positive: Normal inspection, PERRL, No lid inflammation ENT: positive: ENT inspection nml, Pharynx nml, No signs of dehydration. negative: Purulent nasal drainage Neck: positive: Nml inspection, Thyroid nml, No JVD, Trachea midline. negative: Thyromegaly, Stiff neck, Tracheal deviation Respiratory: positive: Chest non-tender, No respiratory distress, Breath sounds nml. negative: Wheezes, Rales, Rhonchi Cardiovascular: positive: Regular rate & rhythm, No murmur, No gallop. negative: Irregularly irregular, Tachycardia, Bradycardia, Systolic murmur, Diastolic murmur Peripheral Pulses: positive: 2+ Abdomen: positive: Non-tender, No organomegaly, Nml bowel sounds, No distention. negative: Tenderness, Guarding, Rebound Back: positive: Nml inspection. negative: CVA tenderness (R), CVA tenderness (L) Skin: positive: Color nml, No rash, Warm, Dry. negative: Cyanosis, Diaphoresis, Pallor, Skin rash Extremities: positive: Non-tender, Full ROM, Nml appearance. negative: Calf tenderness, Edin's sign/cords Neurologic/Psychiatric: positive: Oriented x3, Motor nml, Sensation nml, Mood/affect nml. negative: Weakness, Sensory loss, Facial droop, Slurred/abnml speech, Depressed mood/affect Sepsis Event Note (H) - Evaluation Current Stage of Sepsis: Ruled out Conclusion/Plan - Problem List (1) Chest pain Conclusion/Plan: Patient report she have chest pain and chest pressure in this morning 2 AM, also had a few times of the chest pain. But she denies shortness of breathing, other radiated pain, nausea, vomiting, diaphoresis.Troponin now is 10.8 now, EKG show sinus tachycardia at 107 heart rate. Given patient has history of hypertension, hyperlipidemia, diabetic, We will have stress test on Saturday tomorrow morning with NPO in the middle night, echo, continue obstetrics gyn physician patient, continue check troponin, give aspirin 325 mg daily, nitro as needed for chest pain, morphine for chest pain as needed. Qualifiers: Chest pain type: unspecified Qualified Code(s): R07.9 - Chest pain, unspecified (2) HTN (hypertension) Conclusion/Plan: Patient has slightly elevated blood pressure, patient taking lisinopril in the home we will resume lisinopril, vital signs monitor patient (3) HLD (hyperlipidemia) Conclusion/Plan: Patient has a history of hyperlipidemia but the patient has no statin medication, we will check Lipid panel in the morning, we will follow-up (4) Diabetes Conclusion/Plan: Patient has a history of diabetic, we will give the patient Lantus insulin according to home insulin dosage, we will check A1c, and have sliding scale for pt (5) Asthma Conclusion/Plan: Patient has a history of asthma, we will resume home medication, we will add albuterol PRN as needed (6) Sleep apnea Conclusion/Plan: Patient has a history of sleep apnea, we will let the patient have her own CPAP - Lab Results Fish Bones: 05/03/20 15:51 05/03/20 15:51 Core Measures - Anticipated LOS I expect patient to be DC'd or transferred within 96 hours.: Yes - DVT/VTE - Prophylaxis VTE/DVT Device ordered at admit?: Yes VTE/DVT Prophylaxis med ordered at admit?: Yes
[2020-05-03] MEDS ORDERED: ALBUTEROL NEB 2.5 MG/3 ML INH PRN (17:45)
[2020-05-03 17:46] LABS: HB2 TOTAL 15.3 g/dL; HEMOGLOBIN A1C 0.95 g/dL; HEMOGLOBIN A1C % 7.8 % (4.6-6.2)
[2020-05-03] MEDS: PANTOPRAZOLE 40 MG TABLET PO SCH (18:43)
[2020-05-03] MEDS: SODIUM CHLORIDE FLUSH 0.9% 10 ML SYRINGE IVP SCH (18:45)
[2020-05-03] MEDS: lisinopriL 20 MG TABLET PO SCH (18:45)
[2020-05-03] MEDS: INSULIN ASPART 300 UNIT/3 ML PEN SUBQ SCH (20:55)
[2020-05-03] MEDS ORDERED: MONTELUKAST 10 MG TABLET PO SCH (21:00)
[2020-05-03] MEDS ORDERED: buPROPion SR 150 MG TABLET PO SCH (21:00)
[2020-05-03] MEDS ORDERED: INSULIN GLARGINE 300 UNIT/3 ML PEN SUBQ SCH (21:00)
[2020-05-03] MEDS ORDERED: traZODone 50 MG TABLET PO SCH (21:00)
[2020-05-04 05:15] LABS: BASOPHILS % (AUTO) 0.4 %; EOSINOPHILS # (AUTO) 0.2 10^3/uL (0.0-0.7); EOSINOPHILS % (AUTO) 2.5 %; HGB - HEMOGLOBIN 13.2 g/dL (12.0-16.0); LYMPHOCYTES # (AUTO) 3.1 10^3/uL (1.5-3.5); LYMPHOCYTES % (AUTO) 34.2 %; MEAN CORPUSCULAR HEMOGLOBIN 30.4 pg (27.0-31.0); MEAN CORPUSCULAR HGB CONC 32.3 g/dL (32.0-36.0); MEAN CORPUSCULAR VOLUME 94.2 fL (81.0-99.0); MEAN PLATELET VOLUME 10.2 fL (7.9-10.8); MONOCYTES # (AUTO) 0.8 10^3/uL (0.0-1.0); MONOCYTES % (AUTO) 9.3 %; NEUTROPHILS # (AUTO) 4.8 10^3/uL (1.5-6.6); NEUTROPHILS % (AUTO) 53.3 %; PLT - PLATELET COUNT 290 10^3/uL (130-450); RED BLOOD COUNT 4.34 10^6/uL (4.20-5.40); RED CELL DISTRIBUTION WIDTH 16.4 % (12.0-15.0)
[2020-05-04 05:24] LABS: CREATININE 0.8 mg/dL (0.4-1.0)
[2020-05-04 05:33] LABS: CHOL/HDL RATIO 2.9 (<4.4); CHOLESTEROL 140 mg/dL; HDL CHOLESTEROL 48 mg/dL; LDL CHOLESTEROL,CALCULATED 67 mg/dL; LDL/HDL RATIO 1.4 (<4.4); VLDL CHOLESTEROL 25 mg/dL
[2020-05-04] MEDS: SODIUM CHLORIDE FLUSH 0.9% 10 ML SYRINGE IVP SCH ×2 (07:02→09:19)
[2020-05-04] MEDS: PANTOPRAZOLE 40 MG TABLET PO SCH (07:02)
[2020-05-04] MEDS ORDERED: ASPIRIN 325 MG TABLET PO SCH (08:00)
[2020-05-04] MEDS ORDERED: ENOXAPARIN 40 MG/0.4 ML SYRINGE SUBQ SCH (09:00)
[2020-05-04] MEDS ORDERED: FLUTICASONE NASAL SPRAY NAS SCH (09:00)
[2020-05-04] MEDS ORDERED: FOLIC ACID 1 MG TABLET PO SCH (09:00)
[2020-05-04] MEDS ORDERED: TOLTERODINE LA 2 MG CAPSULE PO SCH (09:00)
[2020-05-04] MEDS ORDERED: CETIRIZINE 10 MG TABLET PO SCH (09:00)
[2020-05-04] MEDS: INSULIN ASPART 300 UNIT/3 ML PEN SUBQ SCH ×2 (09:16→13:22)
[2020-05-04] MEDS: lisinopriL 20 MG TABLET PO SCH (09:17)
[2020-05-04] MEDS ORDERED: REGADENOSON 0.4 MG/5 ML SYRINGE IVP ONE ×2 (11:50→14:20)
[2020-05-04] MEDS ORDERED: AMINOPHYLLINE 250 MG/10 ML VIAL ONE (11:51)
--- NOTE | 2020-05-04 15:01 | CARDIAC PROCEDURE NOTE ---
DATE OF SERVICE: 05/04/2020 Physician: Betzaida Carlson MD INDICATION: Chest pain. DESCRIPTION OF PROCEDURE: After signing informed consent, the patient underwent a Lexiscan pharmaceutical stress test with nuclear myocardial perfusion imaging. RESTING HEART RATE: 82. PEAK HEART RATE: 100. RESTING BLOOD PRESSURE: 146/76. PEAK BLOOD PRESSURE: 191/77. Lexiscan was infused per protocol. Patient had brief headache, flushing and approximately 1 minute of her typical chest pain, which she rated 1/10. She had minimal shortness of breath, oxygen saturation remained above 92% throughout the entire test. RESTING EKG: Normal sinus rhythm, left atrial enlargement, left IVCD. EKG AT PEAK: No new ST segment or T-wave abnormalities. SUMMARY 1. Borderline abnormal resting EKG. 2. No ischemic changes by EKG criteria developed during this pharmaceutical stress test. 3. Nuclear images reported separately. 4. This patient's cardiac risk based on all the above: Low. TD: 05/04/2020 14:15 LEILA
--- NOTE | 2020-05-04 16:13 | Nuclear Medicine Report ---
Reason: chest pain Procedure Date: 05/04/2020 Accession Number: [id number] / [id number] Procedure: NM - Myocardial Perfusion STR/RST CPT Code: Final Report FULL RESULT: PROCEDURE: Resting and stress myocardial perfusion SPECT, with gated imaging and ejection fraction RADIOPHARMACEUTICAL: 10.8 mCi 99m-Tc Myoview IV at rest and 43.2 mCi 99m-Tc Myoview IV following stress. INDICATIONS: Chest pain. History of hyperlipidemia and diabetes. TECHNIQUE: Radiopharmaceutical was injected at rest and following pharmacologic stress. SPECT images were obtained. SPECT myocardial perfusion images were displayed in short axis, horizontal long axis, and vertical long axis views. Gated stress images were reviewed using ZuznowQUANT software. COMPARISON: None. FINDINGS: Raw data: There is good tracer uptake by the myocardium. No significant motion artifacts. Yoyn-pn-cnwtj ratio is 0.32 (normal is less than 0.38 for tetrafosmin tracer). Left ventricle function: Gated images demonstrate left ventricle wall thickening. No segmental wall motion abnormalities. No transient ischemic dilation. Left ventricle stress end-diastolic volume is 73 mL. Left ventricle stress ejection fraction is 63%; normal values are above 45%. Myocardial perfusion: There is normal relative distribution of activity in the left and right ventricular myocardium. There is a small fixed perfusion deficit within the distal anterior wall on stress and rest images, more pronounced on the rest images. The findings likely represent soft tissue attenuation artifact, with evaluation limited in the absence of prone imaging. No definite reversible defects to suggest ischemia. IMPRESSION: 1. Probable normal myocardial perfusion images with a small fixed perfusion deficit in the distal anterior wall likely reflecting soft tissue attenuation artifact. A prior infarct is less likely in the absence of associated wall motion artifact. No reversible defects to suggest ischemia. 2. Left ventricular ejection fraction within normal limits without segmental wall motion abnormalities. Findings were discussed with nurse Saavedra on 05/04/2020 at 4:20 PM. PQRS ATTESTATIONS: Measure 322 - Is this imaging test primarily performed on a low-risk surgery patient for preoperative evaluation within 30 days preceding their low-risk non-cardiac surgery? Low-risk surgery is defined as cardiac or myocardial infarction less than 1%, including (but not limited to) endoscopic procedures, superficial procedures, cataract surgery, and excisional breast surgery: Answer: No Measure 323 - Is this imaging test performed primarily for the monitoring of an asymptomatic patient who had percutaneous coronary intervention on the visit date or within 2 years of the visit date? Answer: No Measure 324 - Is this imaging test performed primarily for the initial detection and risk assessment on an asymptomatic, low coronary heart disease patient? Low CHD risk definition = clinicians should consider the maximum number of available patient factors used to estimate risk based on Boyd (ATP III criteria), typically age, gender, diabetes, smoking status, and use of blood pressure medication, and integrate age appropriate estimates for missing elements, such as LDL or standard blood pressure. Answer: No Reviewed by: Ilan Artis MD on 05/04/2020 4:12 PM PDT Approved by: Ilan Artis MD on 05/04/2020 4:12 PM PDT Station ID: [id number]
[2020-05-04 16:25] VITALS: BP 139/72
--- NOTE | 2020-05-04 16:29 | PHARMACY PROGRESS NOTE ---
- Best Possible Medication History Admit Date and Time: 05/03/20 0235 Processed by: Pharmacy Medication History completed: Yes Patient Interview: Pt unable to participate Secondary Source(s): Physician records, Pharmacy records, Insurance records Unable to verify how much insulin patient is taking. Units completed per MD records. As the person ultimately responsible for medication therapy, providers are able to order a medication from an existing home medication list in [facility] via the "Reconcile Routine" prior to Confirmation of that medication by systems support engineer. Such practice is discouraged except when the physician, in their clinical arti gment, deems that a medical need exists for a medication without regard to previous use.
--- NOTE | 2020-05-04 16:32 | Discharge Plan ---
Discharge Plan Problem Reviewed?: Yes Disposition: Home, Self Care Condition: Stable Diet: Diabetic Activity Restrictions: Activity as Tolerated Shower Restrictions: No (fall precaution) Instruction Topics: ED Chest Pain Noncardiac Ch, Heart Attack First Aid, Heart Attack Warning Signs, Heart Risk Health Concerns: atypical chest pain Plan of Treatment: your test including troponin blood test, EKG, ECHO and stress test, all indicate negative for acute coronary disease or heart attack. advise health life style, safely exercise, gradually loss of weigh, control of your glucose level and your diabetes. Care Goals: stabilization of your medical conditions, and prevention of heart attack Assessment: discussed with you about the care plan, you understood. Additional Instructions or Follow Up instructions: You may followup your PCP in one to two weeks. Should your symptoms return or worsen, you may present ER or call 911 for help. No Smoking: If you smoke, Please STOP! Call for help. Follow-up with: Janine Rojas ARNP, FINANCE INSURANCE MANAGER-C [Primary Care Provider] -
--- NOTE | 2020-05-04 16:43 | DISCHARGE SUMMARY ---
Discharge Summary Admit Date: 05/03/20 Discharge Date: 05/04/20 Discharging Provider: John Saavedra Primary Care Provider: Janine Silverman Condition at Discharge: Stable Discharge Disposition: 01 Home, Self Care Discharge Facility Name: home - DIAGNOSES Admission Diagnoses: (1) Chest pain (2) HTN (hypertension) (3) HLD (hyperlipidemia) (4) Diabetes (5) Asthma (6) Sleep apnea Discharge Diagnoses with Status of Each Condition: (1) Chest pain resolved. Patient denies any more chest pain. Patient's stress test ,Echo, serial troponin test, EKG, all reveals unremarkable. (2) HTN (hypertension) Chronic (3) HLD (hyperlipidemia) Chronic (4) Diabetes chronic (5) Asthma Stable and chronic (6) Sleep apnea chronic - HPI History of Present Illness: This is a 79-year-old female with a PMH significant for Hypertension, hyperlipidemia, asthma, sleep apnea, CPAP use, peripheral neuropathy, type II d iabetic depression, rheumatioid arthritis, who presents to the emergency department complain of chest pain. Patient reports that at about 2 AM she woke up to use the bathroom she noted a very mild left-sided substernal chest pressure which radiated to her back. But She report She took Tylenol, she continue to have sleep when she was returning to bed. today she has noticed an occasional episode of chest pressure at the midsternal but it was self resolved. She denies shortness of breath, nausea or vomiting, jaw pain or arm pain or tingling, diaphoresis. She report her last cardiac stress test and echo was done in 2014. In routine lab test review troponin now is 10.8, EKG review sinus tachycardia at 107 HR. Pt Is admitted in the observation unit for chest pain management and evaluation. We discussed the care goal, patient want full code. - HOSPITAL COURSE Hospital Course: Patient was admitted for chest pain. patient had echo study, serial troponin study, EKG study, patient also had stress test on today, all test shows unremarkable for acute finding. patient reported she has no more chest pain. patient is happy to be discharged to home today. - ALLERGIES Allergies/Adverse Reactions: Allergies Allergy/AdvReac Type Severity Reaction Status Date / Time iodine Allergy Intermediate Rash Verified 01/19/14 08:44 nifedipine [From Procardia] Allergy Mild supraventricular Verified 01/19/14 08:43 tachycardia codeine AdvReac Intermediate Anxiety Verified 12/08/13 09:03 - MEDICATIONS Home Medications: Ambulatory Orders Medication Instructions Recorded Confirmed Fluticasone [Flonase] 2 sprays DAMION DAILY 12/08/13 05/03/20 Folic Acid 1 mg PO DAILY 12/08/13 05/03/20 Hydrochlorothiazide 12.5 mg PO DAILY 12/08/13 05/03/20 Insulin Aspart [Novolog Flexpen] 12 - 20 unit SUBQ TID 12/08/13 01/04/16 Insulin Glargine [Lantus] 40 - 60 unit SUBQ QPM 12/08/13 01/04/16 Aspirin [Aspir 81] 81 mg PO DAILY 01/19/14 05/03/20 Azelastine HCl [Astelin] 2 sprays NS DAILY 01/19/14 01/04/16 Docusate Calcium [Surfak] 240 mg PO TID PRN 01/19/14 05/03/20 Lisinopril [Zestril] 20 mg PO DAILY 05/03/20 05/03/20 Metformin HCl 250 mg PO BID 05/03/20 05/03/20 Montelukast [Singulair] 10 mg PO QPM 05/03/20 05/03/20 Tolterodine Tartrate [Detrol LA] 4 mg PO DAILY 05/03/20 05/03/20 Trazodone HCl 50 mg PO DAILY PM 05/03/20 05/03/20 buPROPion [Wellbutrin Sr] 150 mg PO DAILY PM 05/03/20 05/03/20 glipiZIDE [Glipizide] 2.5 mg PO BID 05/03/20 05/03/20 - PHYSICAL EXAM AT DISCHARGE General Appearance: positive: No acute distress, Alert. negative: Lethargic Eyes Bilateral: positive: Normal inspection, PERRL, No lid inflammation ENT: positive: ENT inspection nml, Pharynx nml, No signs of dehydration. negative: Purulent nasal drainage Neck: positive: Nml inspection, Thyroid nml, No JVD, Trachea midline. negative: Thyromegaly, Stiff neck, Tracheal deviation Respiratory: positive: Chest non-tender, No respiratory distress, Breath sounds nml. negative: Wheezes, Rales, Rhonchi Cardiovascular: positive: Regular rate & rhythm, No murmur, No gallop. negative: Irregularly irregular, Tachycardia, Bradycardia, JVD present, Systolic murmur, Diastolic murmur Peripheral Pulses: positive: 2+ Abdomen: positive: Non-tender, No organomegaly, Nml bowel sounds, No distention. negative: Tenderness, Guarding, Rebound Back: positive: Nml inspection. negative: CVA tenderness (R), CVA tenderness (L) Skin: positive: Color nml, No rash, Warm, Dry. negative: Cyanosis, Diaphoresis, Pallor Extremities: positive: Non-tender, Full ROM, Nml appearance. negative: Calf tenderness, Edin's sign/cords Neurologic/Psychiatric: positive: Oriented x3, Motor nml, Sensation nml, Mood/affect nml. negative: Weakness, Sensory loss, Facial droop, Slurred/abnml speech, Depressed mood/affect - LABS Result Diagrams: 05/04/20 04:20 05/04/20 04:20 - SEPSIS Current Stage of Sepsis: Ruled out - FOLLOW UP Follow Up: your test including troponin blood test, EKG, ECHO and stress test, all indicate negative for acute coronary disease or heart attack. advise health life style, safely exercise, gradually loss of weigh, control of your glucose level and your diabetes. You may followup your PCP in one to two weeks. Should your symptoms return or worsen, you may present ER or call 911 for help. - TIME SPENT Time Spent in Discharge (Minutes): 30
== END 2020-05-04 17:33 | disposition home or self-care (01) ==
LOC: ED 14:00 → MS3 16:57
PROVIDERS: ADMIT Nurse Practitioner Gerontology; ATTEND Nurse Practitioner Gerontology
DX: R07.89 Other chest pain (principal); I10 Essential (primary) hypertension; E78.5 Hyperlipidemia, unspecified; E11.42 Type 2 diabetes mellitus with diabetic polyneuropathy; Z79.4 Long term (current) use of insulin; J45.909 Unspecified asthma, uncomplicated; G47.30 Sleep apnea, unspecified; F32.9 Major depressive disorder, single episode, unspecified
CPT/HCPCS: 36415; 71045; 78452; 80048; 80053; 80061; 83036; 83690; 84484; 85025; 93005; 93017; 93306; 96372; 96374; 99284; 99285; A9270; A9500; G0378; J1650; J1815; J2785; 81001; 83721; 87086

== ENCOUNTER 2020-06-02 09:27 | Outpatient (CLI) | payer MEDICARE, OTHER ==
[2020-06-02 11:45] LABS: CALCIUM 10.2 mg/dL (8.5-10.3); CREATININE 0.8 mg/dL (0.4-1.0)
[2020-06-02 12:03] LABS: HB2 TOTAL 15.1 g/dL; HEMOGLOBIN A1C 0.83 g/dL; HEMOGLOBIN A1C % 7.2 % (4.6-6.2)
== END 2020-06-02 23:59 | disposition home or self-care (01) ==
LOC: LAB.WCP 09:27
PROVIDERS: ATTEND Nurse Practitioner
DX: I10 Essential (primary) hypertension (principal); E11.9 Type 2 diabetes mellitus without complications
CPT/HCPCS: 36415; 80048; 83036

== ENCOUNTER 2020-10-07 09:31 | Outpatient (CLI) | payer MEDICARE, OTHER ==
[2020-10-07 11:54] LABS: CALCIUM 10.1 mg/dL (8.5-10.3); CREATININE 0.9 mg/dL (0.4-1.0)
[2020-10-08 08:02] LABS: HEMOGLOBIN A1c% 7.1 % (4.27-6.07)
== END 2020-10-07 23:59 | disposition home or self-care (01) ==
LOC: LAB.WCP 09:31
PROVIDERS: ATTEND Nurse Practitioner
DX: E11.9 Type 2 diabetes mellitus without complications (principal)
CPT/HCPCS: 36415; 80048; 83036

== ENCOUNTER 2021-01-23 08:00 | Outpatient (CLI) | payer MEDICARE, OTHER ==
[2021-01-23 12:19] LABS: BASOPHILS # (AUTO) 0.1 10^3/uL (0.0-0.1); BASOPHILS % (AUTO) 0.5 %; EOSINOPHILS # (AUTO) 0.3 10^3/uL (0.0-0.7); HCT - HEMATOCRIT 45.1 % (37.0-47.0); HGB - HEMOGLOBIN 14.1 g/dL (12.0-16.0); LYMPHOCYTES # (AUTO) 2.8 10^3/uL (1.5-3.5); LYMPHOCYTES % (AUTO) 29.6 %; MEAN CORPUSCULAR HEMOGLOBIN 30.1 pg (27.0-31.0); MEAN CORPUSCULAR HGB CONC 31.3 g/dL (32.0-36.0); MEAN CORPUSCULAR VOLUME 96.4 fL (81.0-99.0); MEAN PLATELET VOLUME 10.8 fL (7.9-10.8); MONOCYTES # (AUTO) 0.7 10^3/uL (0.0-1.0); NEUTROPHILS # (AUTO) 5.7 10^3/uL (1.5-6.6); NEUTROPHILS % (AUTO) 59.5 %; PLT - PLATELET COUNT 331 10^3/uL (130-450); RED BLOOD COUNT 4.68 10^6/uL (4.20-5.40); RED CELL DISTRIBUTION WIDTH 15.9 % (12.0-15.0); WHITE BLOOD COUNT 9.6 x10^3/uL (4.8-10.8)
[2021-01-23 12:52] LABS: THYROID STIMULATING HORMONE 1.64 uIU/mL (0.34-5.60)
[2021-01-23 12:56] LABS: ALBUMIN 3.6 g/dL (3.2-5.5); ALKALINE PHOSPHATASE 54 IU/L (42-121); ALT ALANINE AMINOTRANSFERASE 25 IU/L (10-60); AST ASPARTATE AMINOTRANSFERASE 22 IU/L (10-42); BILIRUBIN,TOTAL 0.5 mg/dL (0.2-1.0); BUN - BLOOD UREA NITROGEN 17 mg/dL (6-20); CALCIUM 9.9 mg/dL (8.5-10.3); CARBON DIOXIDE - CO2 26 mmol/L (21-32); CHLORIDE 104 mmol/L (101-111); CHOL/HDL RATIO 3.6 (<4.4); CHOLESTEROL 172 mg/dL; CREATININE 0.8 mg/dL (0.4-1.0); GFR - MDRD 69 (>89); GLUCOSE 138 mg/dL (70-100); HDL CHOLESTEROL 48 mg/dL; LDL CHOLESTEROL,CALCULATED 87 mg/dL; LDL/HDL RATIO 1.8 (<4.4); POTASSIUM 4.1 mmol/L (3.5-5.0); SODIUM 140 mmol/L (135-145); TOTAL PROTEIN 7.1 g/dL (6.7-8.2); TRIGLYCERIDES 184 mg/dL; VLDL CHOLESTEROL 37 mg/dL
[2021-01-23 12:57] LABS: ESTIMATED AVERAGE GLUCOSE 160 mg/dL (70-100); HEMOGLOBIN A1c% 7.2 % (4.27-6.07)
== END 2021-01-23 23:59 | disposition home or self-care (01) ==
LOC: LAB.WCP 08:00
PROVIDERS: ATTEND Nurse Practitioner
DX: R42 Dizziness and giddiness (principal); E55.9 Vitamin D deficiency, unspecified; G47.33 Obstructive sleep apnea (adult) (pediatric); E78.2 Mixed hyperlipidemia; I10 Essential (primary) hypertension; E11.9 Type 2 diabetes mellitus without complications
CPT/HCPCS: 36415; 80053; 80061; 83036; 83721; 84443; 85025

== ENCOUNTER 2021-04-21 10:55 | Outpatient (CLI) | payer MEDICARE, OTHER ==
--- NOTE | 2021-04-25 16:06 | Mammography Report ---
BILATERAL DIGITAL SCREENING MAMMOGRAM 3D/2D: 04/21/2021 CLINICAL: Routine screening. Comparison is made to exams dated: 12/11/2016 mammogram, 12/10/2014 mammogram, 11/16/2013 mammogram, 1 12/01/2011 mammogram, 08/15/2011 mammogram, and 05/11/2010 mammogram - [facility]. The tissue of both breasts is predominantly fatty. There are diffuse calcifications in both breasts. No significant masses, calcifications, or other findings are seen in either breast. There has been no significant interval change. IMPRESSION: BENIGN There is no mammographic evidence of malignancy. A 1 year screening mammogram is recommended. This exam was interpreted at Station ID: [id number]. NOTE: For mammograms, a report in lay terms will be sent to the patient. Approximately 15% of breast malignancies will not be visualized mammographically. In the management of a palpable breast mass, a negative mammogram must not discourage biopsy of a clinically suspicious lesion. Electronically Signed By: Fidencio Lacy M.D. aty/:04/21/2021 13:47:05 ACR BI-RADS Category 2: Benign Finding(s) 3342F PARENCHYMAL PATTERN: (F) - The breast(s) demonstrate(s) diffuse fatty replacement. BI-RADS CATEGORY: (2) - 2 RECOMMENDATION: (ANNUAL) - Recommend routine annual screening mammography. [id number] 1 year screening LATERALITY: (B)
== END 2021-04-21 10:56 | disposition home or self-care (01) ==
LOC: DI 10:55
PROVIDERS: ATTEND Nurse Practitioner
DX: Z12.31 Encounter for screening mammogram for malignant neoplasm of breast (principal)

== ENCOUNTER 2021-05-02 09:04 | Outpatient (CLI) | payer MEDICARE, OTHER ==
--- NOTE | 2021-05-02 09:39 | SLEEP CARE CONSULTATION ---
Information from patient questionnaire entered by Liliam Nguyen. I have reviewed and concur with the information entered by Liliam Nguyen. This document represents the service I personally performed and the decisions made by , Paige Rivas ARNP. History of Present Illness Service Date and Time: 05/02/2021 0904 Previous diagnosis: Severe, Obstructive Sleep Apnea-Hypopnea Syndrome AHI: 43.8 (in 2006) Reason for follow up: annual (last seen 11/2018) Equipment type: CPAP Equipment obtained from: [email or web address] (getting supplies as needed) Mask style: Full face Mask brand: Respironics (Dreamwear) Backup mask available: Yes (old mask) Last cushion change: yesterday, changed to full face mask Prior sleep studies: Yes Year and Where: 2006 - [facility] Sleep Type of Sleep Study: Polysomnography HPI additional information: KIKI MURCIA was diagnosed to have severe, AHI 43.8, obstructive sleep apnea- hypopnea syndrome and returned today for CPAP therapy annual follow-up. CPAP Compliance Data - Data Reviewed with Patient Average duration of nightly device use: 10 hr 4 min Compliance rate %: 100 (180 days) Current pressure setting (cmH2O): 4-6 Humidity settin Average residual AHI: 3.4 Average large leak: 5 min 39 sec Subjective Patient concerns: reports: mask discomfort (skin irritation and not able to get it to seat properly on her face), air blowing in eyes, mask leak noise, dry mouth, nose, throat (just a bit), other (snore while using device) Observed to snore while using device: Yes (sometimes) Current pressure setting perceived as: comfortable On therapy, patient: reports: sleeping better, awakening more refreshed, being more awake and alert during the day, more rested overall. denies: drowsiness while driving Initial [place] Sleepiness Scale score: 13 (in 2012) Current [place] Sleepiness Scale score: 8 Allergies and Home Medications Home medication list reviewed: Yes (replacement of Detrol; getting neurosacral stimulator going to be implanted) Review of Systems Review of systems same as previous: Yes (no changes) Physical Exam Heart Rate: 80 O2 Saturation: 95 Height: 5 ft 3 in Weight: 221 lb Body Mass Index: 39.1 BMI Classification: Obese Impression and Plan 1. Obstructive Sleep Apnea-Hypopnea Syndrome, severe, with excellent treatment compliance and good apnea control. On CPAP therapy, the patient has better sleep quality and is more rested overall. Patient was having difficulty with her nasal mask. She is getting skin irritation and hard to get a good seal. She was visited by her DME supplier parts counter representative who fit her with a full face mask. She tried it last night and so far is liking its fit. She was also told she was eligible for a new machine and would like to update her CPAP. The patients CPAP is over 5 years old and of reasonable use. Thus, the CPAP will be updated. A DWO prescription will be made. Compliance guidelines for new device and follow up discussed. Patient also requesting to get a Dreamstation 2. I will add this to her order and we will keep her current pressure at 4-6 cmH2O. Patient's apnea severity and rationale for treatment to reduce apnea, improve sleep quality and reduce cardiovascular and cerebrovascular events was reviewed. I also reviewed the benefit of consistent device use of CPAP for hypertension, diabetes, depression, and anxiety. * Continue auto CPAP pressure at 4-6 cmH2O * Update machine to Dreamstation 2 * Notify me if snoring with mask or feeling that the pressure is too much or too little * Attempt to lose weight * Call this office if any problems using CPAP * Return for follow up one month after getting new machine, or sooner if concerns arise Counseling Topics: Spare mask, Weight loss health impact Visit Type: In Office Time Spent with Patient (minutes): 23 Provider Statement: I spent 100% of the Face to Face Visit with the patient with greater than 50% spent counseling the patient and coordination of care.
== END 2021-05-02 09:05 | disposition home or self-care (01) ==
LOC: SC 09:04
PROVIDERS: ATTEND Nurse Practitioner Family
DX: G47.33 Obstructive sleep apnea (adult) (pediatric) (principal); E66.9 Obesity, unspecified; Z68.39 Body mass index [BMI] 39.0-39.9, adult
CPT/HCPCS: 99213; G0463; 99212

== ENCOUNTER 2021-05-17 08:00 | Outpatient (CLI) | payer MEDICARE, OTHER | END 2021-05-17 23:59 | disposition home or self-care (01) | LOC: LAB.WCP 08:00 | PROVIDERS: ATTEND Urology | DX: R39.9 Unspecified symptoms and signs involving the genitourinary system (principal) | CPT/HCPCS: 87086 ==

== ENCOUNTER 2021-07-10 08:00 | Outpatient (CLI) | payer MEDICARE, OTHER ==
[2021-07-10 12:32] LABS: BASOPHILS % (AUTO) 0.5 %; EOSINOPHILS # (AUTO) 0.3 10^3/uL (0.0-0.7); HCT - HEMATOCRIT 46.8 % (37.0-47.0); HGB - HEMOGLOBIN 14.5 g/dL (12.0-16.0); LYMPHOCYTES % (AUTO) 23.7 %; MEAN CORPUSCULAR HEMOGLOBIN 29.7 pg (27.0-31.0); MEAN CORPUSCULAR VOLUME 95.9 fL (81.0-99.0); MEAN PLATELET VOLUME 10.7 fL (7.9-10.8); MONOCYTES # (AUTO) 0.5 10^3/uL (0.0-1.0); MONOCYTES % (AUTO) 6.3 %; NEUTROPHILS # (AUTO) 5.7 10^3/uL (1.5-6.6); NEUTROPHILS % (AUTO) 66.2 %; PLT - PLATELET COUNT 330 10^3/uL (130-450); RED BLOOD COUNT 4.88 10^6/uL (4.20-5.40); RED CELL DISTRIBUTION WIDTH 15.9 % (12.0-15.0); WHITE BLOOD COUNT 8.6 x10^3/uL (4.8-10.8)
[2021-07-10 12:39] LABS: ALBUMIN 3.7 g/dL (3.2-5.5); ALBUMIN/GLOBULIN RATIO 1.1 (1.0-2.2); ALKALINE PHOSPHATASE 51 IU/L (42-121); ALT ALANINE AMINOTRANSFERASE 25 IU/L (10-60); AST ASPARTATE AMINOTRANSFERASE 23 IU/L (10-42); BILIRUBIN,TOTAL 0.7 mg/dL (0.2-1.0); BUN - BLOOD UREA NITROGEN 20 mg/dL (6-20); CALCIUM 9.9 mg/dL (8.5-10.3); CARBON DIOXIDE - CO2 29 mmol/L (21-32); CHLORIDE 102 mmol/L (101-111); CHOL/HDL RATIO 3.2 (<4.4); CHOLESTEROL 167 mg/dL; CREATININE 0.8 mg/dL (0.4-1.0); GFR - MDRD 69 (>89); GLUCOSE 111 mg/dL (70-100); HDL CHOLESTEROL 52 mg/dL; LDL CHOLESTEROL,CALCULATED 87 mg/dL; LDL/HDL RATIO 1.7 (<4.4); POTASSIUM 3.9 mmol/L (3.5-5.0); SODIUM 139 mmol/L (135-145); TOTAL PROTEIN 7.2 g/dL (6.7-8.2); TRIGLYCERIDES 142 mg/dL; VLDL CHOLESTEROL 28 mg/dL
[2021-07-10 12:57] LABS: THYROID STIMULATING HORMONE 1.01 uIU/mL (0.34-5.60)
[2021-07-10 13:01] LABS: CREATININE,URINE 135.4 mg/dL; ESTIMATED AVERAGE GLUCOSE 146 mg/dL (70-100); HEMOGLOBIN A1c% 6.7 % (4.27-6.07); MICROALBUM/CREATININE RATIO,UR 92.3 ug/mg (<30.0); MICROALBUMIN,URINE 12.5 mg/dL (0-300.0)
[2021-07-10 13:31] LABS: BILIRUBIN,URINE NEGATIVE (NEGATIVE); GLUCOSE, URINE (UA) NEGATIVE (NEGATIVE); KETONES,URINE (UA) NEGATIVE (NEGATIVE); LEUKOCYTE ESTERASE, URINE NEGATIVE (NEGATIVE); NITRITE,URINE NEGATIVE (NEGATIVE); OCCULT BLOOD,URINE NEGATIVE (NEGATIVE); PH,URINE 5.5 PH (5.0-7.5); PROTEIN,URINE TRACE mg/dL (NEGATIVE); UROBILINOGEN,URINE 0.2 (NORMAL) E.U./dL (NORMAL)
[2021-07-10 13:33] LABS: CLARITY,URINE CLEAR (CLEAR)
[2021-07-10 13:42] LABS: BACTERIA,URINE Rare /HPF (None Seen); CRYSTALS,URINE 26-50 Ca Oxalate /LPF; RBC,URINE None Seen /HPF (0-5); SQUAMOUS EPITHELIAL CELL,UR RARE Squamous (<= Few)
== END 2021-07-10 23:59 | disposition home or self-care (01) ==
LOC: LAB.WCP 08:00
PROVIDERS: ATTEND Nurse Practitioner
DX: I10 Essential (primary) hypertension (principal); E11.9 Type 2 diabetes mellitus without complications; E78.2 Mixed hyperlipidemia
CPT/HCPCS: 36415; 80053; 80061; 81001; 82043; 82570; 83036; 83721; 84443; 85025; 87086

== ENCOUNTER 2021-10-26 08:16 | Outpatient (CLI) | payer MEDICARE, OTHER ==
[2021-10-26 12:50] LABS: ESTIMATED AVERAGE GLUCOSE 140 mg/dL (70-100); HEMOGLOBIN A1c% 6.5 % (4.27-6.07)
== END 2021-10-26 08:17 | disposition home or self-care (01) ==
LOC: LAB.N 08:16
PROVIDERS: ATTEND Nurse Practitioner
DX: E11.9 Type 2 diabetes mellitus without complications (principal)
CPT/HCPCS: 36415; 83036

== ENCOUNTER 2021-10-27 10:15 | Outpatient (CLI) | payer MEDICARE, OTHER ==
[2021-10-27 19:57] LABS: BILIRUBIN,URINE NEGATIVE (NEGATIVE); GLUCOSE, URINE (UA) NEGATIVE (NEGATIVE); KETONES,URINE (UA) NEGATIVE (NEGATIVE); LEUKOCYTE ESTERASE, URINE NEGATIVE (NEGATIVE); NITRITE,URINE NEGATIVE (NEGATIVE); OCCULT BLOOD,URINE NEGATIVE (NEGATIVE); PH,URINE 5.5 PH (5.0-7.5); PROTEIN,URINE NEGATIVE (NEGATIVE); UROBILINOGEN,URINE 0.2 (NORMAL) E.U./dL (NORMAL)
[2021-10-27 19:58] LABS: CLARITY,URINE CLEAR (CLEAR)
[2021-10-27 20:29] LABS: BACTERIA,URINE Few /HPF (None Seen); CRYSTALS,URINE >50 Calcium Oxalate /LPF; RBC,URINE None Seen /HPF (0-5); SQUAMOUS EPITHELIAL CELL,UR NONE SEEN (<= Few); WBC,URINE 0-3 /HPF (0-5)
== END 2021-10-27 23:59 | disposition home or self-care (01) ==
LOC: LAB.WCP 10:15
PROVIDERS: ATTEND Nurse Practitioner
DX: R30.0 Dysuria (principal)
CPT/HCPCS: 81001; 87086

== ENCOUNTER 2022-02-28 08:27 | Outpatient (CLI) | payer MEDICARE, OTHER ==
[2022-02-28 12:29] LABS: CREATININE,URINE 111.7 mg/dL; MICROALBUM/CREATININE RATIO,UR 128.9 ug/mg (<30.0); MICROALBUMIN,URINE 14.4 mg/dL (0-300.0)
[2022-02-28 13:09] LABS: ESTIMATED AVERAGE GLUCOSE 151 mg/dL (70-100); HEMOGLOBIN A1c% 6.9 % (4.27-6.07)
[2022-02-28 13:11] LABS: CALCIUM 9.9 mg/dL (8.5-10.3); POTASSIUM 4.2 mmol/L (3.5-5.0)
== END 2022-02-28 08:28 | disposition home or self-care (01) ==
LOC: LAB.N 08:27
PROVIDERS: ATTEND Nurse Practitioner
DX: E11.9 Type 2 diabetes mellitus without complications (principal)
CPT/HCPCS: 36415; 80048; 82043; 82570; 83036

== ENCOUNTER 2022-06-08 07:35 | Outpatient (CLI) | payer MEDICARE, OTHER ==
[2022-06-08 13:03] LABS: ESTIMATED AVERAGE GLUCOSE 140 mg/dL (70-100); HEMOGLOBIN A1c% 6.5 % (4.27-6.07)
[2022-06-08 13:06] LABS: CHOLESTEROL 180 mg/dL; HDL CHOLESTEROL 60 mg/dL; LDL CHOLESTEROL,CALCULATED 96 mg/dL; LDL/HDL RATIO 1.6 (<4.4); TRIGLYCERIDES 122 mg/dL; VLDL CHOLESTEROL 24 mg/dL
== END 2022-06-08 07:36 | disposition home or self-care (01) ==
LOC: LAB.N 07:35
PROVIDERS: ATTEND Nurse Practitioner
DX: E11.22 Type 2 diabetes mellitus with diabetic chronic kidney disease (principal)
CPT/HCPCS: 36415; 80061; 83036; 83721

== ENCOUNTER 2022-08-09 08:03 | Outpatient (CLI) | payer MEDICARE, OTHER ==
[2022-08-09 16:58] LABS: ESTIMATED AVERAGE GLUCOSE 148 mg/dL (70-100); HEMOGLOBIN A1c% 6.8 % (4.27-6.07)
== END 2022-08-09 08:04 | disposition home or self-care (01) ==
LOC: LAB.N 08:03
PROVIDERS: ATTEND Nurse Practitioner
DX: E11.22 Type 2 diabetes mellitus with diabetic chronic kidney disease (principal)
CPT/HCPCS: 36415; 83036

== ENCOUNTER 2023-05-30 07:51 | Outpatient (CLI) | payer MEDICARE, OTHER ==
[2023-05-30 12:14] LABS: ESTIMATED AVERAGE GLUCOSE 151 mg/dL (70-100); HEMOGLOBIN A1c% 6.9 % (4.27-6.07)
== END 2023-05-30 07:52 | disposition home or self-care (01) ==
LOC: LAB.N 07:51
PROVIDERS: ATTEND Nurse Practitioner
DX: E11.22 Type 2 diabetes mellitus with diabetic chronic kidney disease (principal)
CPT/HCPCS: 36415; 83036

== ENCOUNTER 2023-09-04 07:42 | Outpatient (CLI) | payer MEDICARE, OTHER ==
[2023-09-04 11:56] LABS: BASOPHILS # (AUTO) 0.1 10^3/uL (0.0-0.1); BASOPHILS % (AUTO) 0.6 %; EOSINOPHILS # (AUTO) 0.2 10^3/uL (0.0-0.7); EOSINOPHILS % (AUTO) 2.3 %; HCT - HEMATOCRIT 47.7 % (37.0-47.0); LYMPHOCYTES # (AUTO) 2.7 10^3/uL (1.5-3.5); LYMPHOCYTES % (AUTO) 26.8 %; MEAN CORPUSCULAR HEMOGLOBIN 30.2 pg (27.0-31.0); MEAN CORPUSCULAR HGB CONC 31.4 g/dL (32.0-36.0); MONOCYTES # (AUTO) 0.8 10^3/uL (0.0-1.0); MONOCYTES % (AUTO) 7.6 %; NEUTROPHILS # (AUTO) 6.3 10^3/uL (1.5-6.6); NEUTROPHILS % (AUTO) 62.4 %; PLT - PLATELET COUNT 301 10^3/uL (130-450); RED BLOOD COUNT 4.97 10^6/uL (4.20-5.40); RED CELL DISTRIBUTION WIDTH 15.7 % (12.0-15.0); WHITE BLOOD COUNT 10.1 x10^3/uL (4.8-10.8)
[2023-09-04 12:03] LABS: CREATININE,URINE 87.7 mg/dL
[2023-09-04 12:07] LABS: ESTIMATED AVERAGE GLUCOSE 157 mg/dL (70-100); HEMOGLOBIN A1c% 7.1 % (4.27-6.07)
[2023-09-04 12:09] LABS: ALBUMIN 3.8 g/dL (3.2-5.5); ALBUMIN/GLOBULIN RATIO 1.2 (1.0-2.2); ALKALINE PHOSPHATASE 53 IU/L (42-121); ALT ALANINE AMINOTRANSFERASE 20 IU/L (10-60); AST ASPARTATE AMINOTRANSFERASE 18 IU/L (10-42); BILIRUBIN,TOTAL 0.4 mg/dL (0.2-1.0); BUN - BLOOD UREA NITROGEN 24 mg/dL (6-20); CALCIUM 10.1 mg/dL (8.5-10.3); CARBON DIOXIDE - CO2 32 mmol/L (21-32); CHLORIDE 103 mmol/L (101-111); CHOLESTEROL 109 mg/dL; CREATININE 0.8 mg/dL (0.6-1.3); GFR - MDRD 69 (>89); GLUCOSE 150 mg/dL (74-104); SODIUM 141 mmol/L (135-145); TOTAL PROTEIN 6.9 g/dL (6.4-8.9); TRIGLYCERIDES 100 mg/dL (48-352); VLDL CHOLESTEROL 20 mg/dL
[2023-09-04 23:55] LABS: HDL CHOLESTEROL 54 mg/dL; LDL CHOLESTEROL,CALCULATED 35 mg/dL; LDL/HDL RATIO 0.6 (<4.4)
== END 2023-09-04 07:43 | disposition home or self-care (01) ==
LOC: LAB.N 07:42
PROVIDERS: ATTEND Nurse Practitioner
DX: E78.2 Mixed hyperlipidemia (principal); I12.9 Hypertensive chronic kidney disease with stage 1 through stage 4 chronic kidney disease, or unspecified chronic kidney disease; E11.22 Type 2 diabetes mellitus with diabetic chronic kidney disease; N18.31 Chronic kidney disease, stage 3a
CPT/HCPCS: 36415; 80053; 80061; 82043; 82570; 83036; 83721; 85025

== ENCOUNTER 2023-11-21 08:03 | Outpatient (CLI) | payer MEDICARE, OTHER ==
[2023-11-21 12:27] LABS: ESTIMATED AVERAGE GLUCOSE 151 mg/dL (70-100); HEMOGLOBIN A1c% 6.9 % (4.27-6.07)
[2023-11-21 12:42] LABS: CREATININE 0.9 mg/dL (0.6-1.3); POTASSIUM 3.7 mmol/L (3.5-4.5)
== END 2023-11-21 08:04 | disposition home or self-care (01) ==
LOC: LAB.N 08:03
PROVIDERS: ATTEND Nurse Practitioner
DX: I10 Essential (primary) hypertension (principal); E11.9 Type 2 diabetes mellitus without complications
CPT/HCPCS: 36415; 80048; 83036

== ENCOUNTER 2023-12-17 10:15 | Outpatient (CLI) | payer MEDICARE, OTHER | END 2023-12-17 10:30 | disposition home or self-care (01) | LOC: LAB.N 10:15 | PROVIDERS: ATTEND Nurse Practitioner | DX: N39.0 Urinary tract infection, site not specified (principal) | CPT/HCPCS: 87086; 87181 ==

== ENCOUNTER 2023-12-20 09:33 | Outpatient (CLI) | payer MEDICARE, OTHER ==
--- NOTE | 2023-12-20 09:59 | Sleep Patient Instructions ---
Sleep Center Visit Summary - Patient Visit Information Reason for Visit: Annual visit - Patient Instructions Additional Instructions: You will continue with CPAP therapy with pressure changed to 6-10 cmH2O. A supply prescription will be updated with your DME. We encourage you to continue to try to lose weight. Please follow up with the sleep care office in 1-2 months. - Clinic Information Contact: [facility] [address] [place] [address] [email or web address] T: [phone]
--- NOTE | 2023-12-20 10:06 | SLEEP CARE CONSULTATION ---
Information from patient questionnaire entered by Shanell Garner. I have reviewed and concur with the information entered by Shanell Garner. This document represents the service I personally performed and the decisions made by , Paige Rivas ARNP. History of Present Illness Service Date and Time: 12/20/2023 0933 Previous diagnosis: Severe, Obstructive Sleep Apnea-Hypopnea Syndrome AHI: 43.8 (in 2006) Reason for follow up: annual (LAST SEEN 04/2021) Equipment type: CPAP (DREAM STATION 2; s/u 05/26/2021) Equipment obtained from: [employer] (getting supplies as needed) Mask style: Full face Mask brand: Resmed (AirFit F30i, small cushion) Backup mask available: Yes (old mask) Last cushion change: 3 months Prior sleep studies: Yes Year and Where: 2006 - [facility] Sleep Type of Sleep Study: Polysomnography HPI additional information: FRANCO MURCIA was diagnosed to have severe, AHI 43.8, obstructive sleep apnea- hypopnea syndrome and returned today for CPAP therapy annual follow-up. Sleep Study - Results Type of Sleep Study: Polysomnography Prior sleep studies: Yes Year and Where: 2006 - [facility] Sleep CPAP Compliance Data - Data Reviewed with Patient Average duration of nightly device use: 10 HRS 21 MINS 23 SECS Compliance rate %: 95.3 (12/17/22-12/16/23; 352/365 days used) Current pressure setting (cmH2O): 4-6 (avg 6) Average residual AHI: 17.4 (RERA 5.9) Central apnea: 0.1 Obstructive apnea: 4.6 Hypopnea: 12.7 Average large leak: 28 mins 15 secs Subjective Patient concerns: denies: aerophagia, mask discomfort, air blowing in eyes, mask leak noise, condensation in mask/hose, nasal congestion, dry mouth, nose, throat, epistaxis Observed to snore while using device: No Current pressure setting perceived as: comfortable On therapy, patient: reports: sleeping better, awakening more refreshed, being more awake and alert during the day, more rested overall. denies: drowsiness while driving Initial [place] Sleepiness Scale score: 13 (in 2012) Current [place] Sleepiness Scale score: 9 (12/20/23) Allergies and Home Medications Known drug allergies: Yes (as listed) Drug allergies reviewed: Yes Home medication list reviewed: Yes (no changes) Allergy and home medication list: Allergies iodine Allergy (Intermediate, Verified 12/19/23 12:54) Rash nifedipine [From Procardia] Allergy (Mild, Verified 12/19/23 12:54) supraventricular tachycardia codeine Adverse Reaction (Intermediate, Verified 12/19/23 12:54) Anxiety agitation. Review of Systems Review of systems same as previous: Yes (CHANGE) Physical Exam Vital signs obtained and entered by: SHANELL Sharma MA Blood Pressure: 110/68 (LEFT ARM) Cuff size: regular Heart Rate: 87 O2 Saturation: 93 Height: 5 ft 3 in Weight: 224 lb Body Mass Index: 39.6 BMI Classification: Obese Impression and Plan 1. Obstructive Sleep Apnea-Hypopnea Syndrome, severe, with good treatment compliance and fair apnea control with elevated residual AHI. On CPAP therapy, the patient has better sleep quality and is more rested overall. Franco has significant improvement of her sleep apnea but her current pressure is mildly ineffective. The patients pressure will be changed to autoCPAP 6-10 cmH20 for elevation of residual AHI. I will also turn her ramp back on and have it start at 4 cmH2O. Patient advised to contact me if pressure change is uncomfortable so that it can be adjusted. Goals for apnea control discussed. I will have her return in 1-2 months to reviewed response to pressure change. Patient's apnea severity and rationale for treatment to reduce apnea, improve sleep quality and reduce cardiovascular and cerebrovascular events was reviewed. I also reviewed the benefit of consistent device use of CPAP for hypertension, diabetes, depression and anxiety. 2. Obesity, unspecified. Currently patients BMI is 39.6. Obesity increases the risk of apnea, CPAP pressure requirements and overall health risks especially cardiovascular and diabetes. Thus patient is advised to lose weight. * Change auto CPAP pressure to 6-10 cmH2O * Update supply prescription * Notify me if snoring with mask or feeling that the pressure is too much or too little * Attempt to lose weight * Call this office if any problems using CPAP * Return for follow up in 1-2 months, or sooner if concerns arise Prescriptions: Device supplies Follow up with Sleep Care in: 1-2 months Visit Type: In Office Time Spent with Patient (minutes): 22 Provider Statement: I spent 100% of the Face to Face Visit with the patient with greater than 50% spent counseling the patient and coordination of care.
[2023-12-20 10:10] VITALS: BP 110/68; O2SAT 93
== END 2023-12-20 09:34 | disposition home or self-care (01) ==
LOC: SC 09:33
PROVIDERS: ATTEND Nurse Practitioner Family
DX: G47.33 Obstructive sleep apnea (adult) (pediatric) (principal); E66.9 Obesity, unspecified; Z68.39 Body mass index [BMI] 39.0-39.9, adult
CPT/HCPCS: 99213; G0463; 99212

== ENCOUNTER 2024-01-22 09:04 | Outpatient (CLI) | payer MEDICARE, OTHER ==
--- NOTE | 2024-01-22 09:48 | Sleep Patient Instructions ---
Sleep Center Visit Summary - Patient Visit Information Reason for Visit: One month follow up - Patient Instructions Additional Instructions: You were here for follow up of CPAP therapy. You will be continued on CPAP therapy with pressure at 6-10 cmH2O. You should follow up with sleep care in 12 months. You may contact us sooner for any questions or concerns. - Clinic Information Contact: [facility] [address] [place] [address] [email or web address] T: [phone]
--- NOTE | 2024-01-22 09:52 | SLEEP CARE CONSULTATION ---
Information from patient questionnaire entered by Nguyen Garner. I have reviewed and concur with the information entered by Nguyen Garner. This document represents the service I personally performed and the decisions made by me, Paige Rivas ARNP. History of Present Illness Service Date and Time: 01/22/2024 0904 Previous diagnosis: Severe, Obstructive Sleep Apnea-Hypopnea Syndrome AHI: 43.8 (in 2006) Reason for follow up: one month Equipment type: CPAP ([facility] 2; s/u 05/26/2021) Equipment obtained from: [employer] (getting supplies as needed) Mask style: Full face Mask brand: Resmed (AirFit F30i, small cushion) Backup mask available: Yes Last cushion change: 2-3 weeks Prior sleep studies: Yes Year and Where: 2006 - [facility] Sleep Type of Sleep Study: Polysomnography HPI additional information: KIKI MURCIA was diagnosed to have severe, AHI 43.8, obstructive sleep apnea- hypopnea syndrome and returned today for CPAP therapy one month follow-up. Sleep Study - Results Type of Sleep Study: Polysomnography Prior sleep studies: Yes Year and Where: 2006 - [facility] Sleep CPAP Compliance Data - Data Reviewed with Patient Average duration of nightly device use: 10 HRS 41 MINS 19 SECS Compliance rate %: 96.7 (12/21/23-01/19/24) Current pressure setting (cmH2O): 6-10 Average residual AHI: 7.6 Central apnea: 0.1 Obstructive apnea: 0.9 Hypopnea: 6.6 Average large leak: 1 hour 6 minutes Subjective Patient concerns: reports: dry mouth, nose, throat. denies: aerophagia, mask discomfort, air blowing in eyes, mask leak noise, condensation in mask/hose, nasal congestion, epistaxis Observed to snore while using device: No Current pressure setting perceived as: comfortable On therapy, patient: reports: sleeping better, awakening more refreshed, being more awake and alert during the day, more rested overall. denies: drowsiness while driving Initial [place] Sleepiness Scale score: 13 (in 2012) Current [place] Sleepiness Scale score: 10 (01/22/24) Allergies and Home Medications Known drug allergies: Yes (as listed) Drug allergies reviewed: Yes Home medication list reviewed: Yes (no changes) Allergy and home medication list: Allergies iodine Allergy (Intermediate, Verified 01/20/24 10:56) Rash nifedipine [From Procardia] Allergy (Mild, Verified 01/20/24 10:56) supraventricular tachycardia codeine Adverse Reaction (Intermediate, Verified 01/20/24 10:56) Anxiety agitation. Review of Systems Review of systems same as previous: Yes (NO CHANGE) Physical Exam Vital signs obtained and entered by: NGUYEN Sharma MA Blood Pressure: 142/80 (LEFT ARM) Cuff size: regular Heart Rate: 97 O2 Saturation: 92 Height: 5 ft 3 in Weight: 230 lb Body Mass Index: 40.7 BMI Classification: Morbidly Obese Impression and Plan 1. Obstructive Sleep Apnea-Hypopnea Syndrome, severe, with good treatment comp liance and fair apnea control with elevated residual AHI. On CPAP therapy, the patient has better sleep quality and is more rested overall. The elevated residual AHI consists of mostly hypopneas with average large leak over an hour. Her residual AHI appears to be falsely elevated due to average large leak and no more adjustments needed at this time. She is using a full face mask, AirFit F30i, with good fit but states she does get some leaks around the mask at times. She is not sure when to change her mask cushion and I advised her to change at least once a month. She voiced understanding. Patient's apnea severity and rationale for treatment to reduce apnea, improve sleep quality and reduce cardiovascular and cerebrovascular events was reviewed. I also reviewed the benefit of consistent device use of CPAP for hypertension, diabetes, depression and anxiety. 2. Obesity, unspecified. Currently patients BMI is 40.7. Obesity increases the risk of apnea, CPAP pressure requirements and overall health risks especially cardiovascular and diabetes. Thus patient is advised to lose weight. * Continue auto CPAP pressure at 6-10 cmH2O * Notify me if snoring with mask or feeling that the pressure is too much or too little * Attempt to lose weight * Call this office if any problems using CPAP * Return for follow up in 12 months, or sooner if concerns arise Counseling Topics: Spare mask, Weight loss health impact Follow up with Sleep Care in: 1 year Visit Type: In Office Time Spent with Patient (minutes): 20 Provider Statement: I spent 100% of the Face to Face Visit with the patient with greater than 50% spent counseling the patient and coordination of care.
[2024-01-22 10:06] VITALS: BP 142/80; O2SAT 92
== END 2024-01-22 09:05 | disposition home or self-care (01) ==
LOC: SC 09:04
PROVIDERS: ATTEND Nurse Practitioner Family
DX: G47.33 Obstructive sleep apnea (adult) (pediatric) (principal); E66.01 Morbid (severe) obesity due to excess calories; Z68.41 Body mass index [BMI] 40.0-44.9, adult
CPT/HCPCS: 99213; G0463; 99212

== ENCOUNTER 2024-04-14 08:12 | Outpatient (CLI) | payer MEDICARE, OTHER ==
[2024-04-14 13:07] LABS: ESTIMATED AVERAGE GLUCOSE 151 mg/dL (70-100); HEMOGLOBIN A1c% 6.9 % (4.27-6.07)
== END 2024-04-14 08:13 | disposition home or self-care (01) ==
LOC: LAB.N 08:12
PROVIDERS: ATTEND Nurse Practitioner
DX: E11.22 Type 2 diabetes mellitus with diabetic chronic kidney disease (principal)
CPT/HCPCS: 36415; 83036

== ENCOUNTER 2024-05-06 09:03 | Outpatient (CLI) | payer MEDICARE, OTHER ==
--- NOTE | 2024-05-06 15:06 | XRAY Report ---
PROCEDURE: Knee 4+V RT INDICATIONS: LEG PAIN,RIGHT TECHNIQUE: views of the knee(s) were acquired. COMPARISON: X-ray knee 05/14/2019 FINDINGS: Bones: No fractures or dislocations. No suspicious bony lesions. There is overall moderate tricom partmental arthritic change on the right and bicompartmental arthritic change on the left. Both knees demonstrate the most significant change medially. Minimal interval progression is present bilaterall y, most prominent in the left medial compartment. Very minimal periarticular osteophytes are present. No erosions. Soft tissues: Minimal bilateral knee joint effusion. No suspicious soft tissue calcifications or mas ses. 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 Reviewed by: Malinda Myrick MD on 05/06/2024 3:05 PM PDT Approved by: Malinda Myrick MD on 05/06/2024 3:05 PM PDT Station ID: [id number]
== END 2024-05-06 09:04 | disposition home or self-care (01) ==
LOC: DI.N 09:03
PROVIDERS: ATTEND Nurse Practitioner
DX: M17.0 Bilateral primary osteoarthritis of knee (principal); Z51.81 Encounter for therapeutic drug level monitoring; Z79.899 Other long term (current) drug therapy
CPT/HCPCS: 36415; 80048

== ENCOUNTER 2024-05-06 09:28 | Outpatient (CLI) | payer MEDICARE, OTHER ==
[2024-05-06 12:50] LABS: CALCIUM 10.9 mg/dL (8.5-10.3); CREATININE 0.9 mg/dL (0.6-1.3)
== END 2024-05-06 09:29 | disposition home or self-care (01) ==
LOC: LAB.N 09:28
PROVIDERS: ATTEND Nurse Practitioner
DX: Z51.81 Encounter for therapeutic drug level monitoring (principal)
CPT/HCPCS: 36415; 80048

== ENCOUNTER 2024-05-19 08:18 | Outpatient (CLI) | payer MEDICARE, OTHER ==
--- NOTE | 2024-05-19 10:52 | Ultrasound Report ---
PROCEDURE: Duplex Ext Veins Right INDICATIONS: R LEG PAIN TECHNIQUE: Real-time imaging, as well as color and pulse Doppler interrogation, were performed of the lower extr emity deep veins from the inguinal ligament to the popliteal fossa. Attempted visualization of the ca lf veins was performed. COMPARISON: None. FINDINGS: The deep veins are normally compressible, and free of intraluminal thrombus. Color and pu lse Doppler demonstrate normal phasic intraluminal flow. There is normal augmentation response to di stal compression maneuver. IMPRESSION: No deep venous thrombosis of the right lower extremity. Reviewed by: Cisco Veloz MD on 05/19/2024 10:50 AM PDT Approved by: Cisco Veloz MD on 05/19/2024 10:50 AM PDT Station ID: [id number]
== END 2024-05-19 08:19 | disposition home or self-care (01) ==
LOC: DI 08:18
PROVIDERS: ATTEND Nurse Practitioner
DX: M79.604 Pain in right leg (principal)

== ENCOUNTER 2024-07-15 08:00 | Outpatient (CLI) | payer MEDICARE, OTHER | END 2024-07-15 23:59 | disposition home or self-care (01) | LOC: LAB.N 08:00 | PROVIDERS: ATTEND Nurse Practitioner Psychiatric/Mental Health | DX: N39.0 Urinary tract infection, site not specified (principal) | CPT/HCPCS: 87077; 87086; 87181 ==

== ENCOUNTER 2024-08-06 07:00 | Outpatient (CLI) | payer MEDICARE, OTHER ==
[2024-08-06 18:13] LABS: BILIRUBIN,URINE NEGATIVE (NEGATIVE); GLUCOSE, URINE (UA) NEGATIVE (NEGATIVE); KETONES,URINE (UA) NEGATIVE (NEGATIVE); LEUKOCYTE ESTERASE, URINE TRACE (NEGATIVE); NITRITE,URINE NEGATIVE (NEGATIVE); OCCULT BLOOD,URINE TRACE-LYSE (NEGATIVE); PROTEIN,URINE 100 mg/dL (NEGATIVE); UROBILINOGEN,URINE 0.2 (NORMAL) E.U./dL (NORMAL)
[2024-08-06 18:16] LABS: CLARITY,URINE CLOUDY (CLEAR)
[2024-08-06 18:28] LABS: BACTERIA,URINE Rare /HPF (None Seen); RBC,URINE 0-5 /HPF (0-5); SQUAMOUS EPITHELIAL CELL,UR RARE Squamous (<= Few)
[2024-08-06 18:29] LABS: CRYSTALS,URINE >50 Calcium Oxalate /LPF
== END 2024-08-06 23:59 | disposition home or self-care (01) ==
LOC: LAB.S 07:00
PROVIDERS: ATTEND Nurse Practitioner
DX: R30.0 Dysuria (principal)
CPT/HCPCS: 81001; 87086